=== PATIENT | male | born 1965 | race African-American/Black ===

== ENCOUNTER 2017-06-01 15:18 | Inpatient (IN) | payer OTHER ==
[~2017-06-01] VITALS: Ht 167.6 cm; Wt 73.0 kg
[2017-06-01] VITALS (7 sets, daily range): BP systolic 173–209; BP diastolic 73–142; PULSE 49–87; RESP 14–18; TEMP 96.8–98.5; O2SAT 98–100
[~2017-06-01 15:18] MED LIST: HYDR50TA5 PO; LISI-357 PO; NORV10TA PO; ONETAB17 PO
--- NOTE | 2017-06-01 16:26 | PD ---
HPI Chief Complaint: Medical Clearance Time Seen by Provider: 16:26 Travel History International Travel<30 days: No Contact w/Intl Traveler<30days: No Traveled to known affect area: No History of Present Illness HPI 52-year-old -Irish male with known hypertension, presents to emergency department with headache which he states he typically gets when his blood pressure is too high. Patient does have clonidine which he took 1 hour after taking a nap waking up with a headache on the left side of his head. He was unsure what his blood pressure was at that time, but since he took the clonidine his pressure seems to have improved by his symptoms which are improved. His headache is now about a 3 out of 10. He denies any visual changes at this time. Patient states he was on lisinopril and amlodipine in the past but not for many months. He now just takes clonidine twice daily, but states he does sometimes skip the evening dose. Patient states he recently got new insurance and has not been seen by a primary care physician in several years. Patient denies chest pain or other symptoms. Blood pressure in triage is noted to be 209/130. The patient has no known drug allergies. PFSH Past Medical History Cardiovascular Problems: Yes High Cholesterol: Yes Diminished Hearing: No Hypertension: Yes Social History Alcohol Use: No Tobacco Use: Yes (2 CIGARS/DAY) Substance Use: Yes (MARIJUANA) Allergies-Medications (Allergen,Severity, Reaction): Coded Allergies: No Known Allergies (Verified , 06/08/14) Reported Meds & Prescriptions Reported Meds & Active Scripts Active Review of Systems Except as stated in HPI: all other systems reviewed are Neg General / Constitutional: No: Fever Eyes: Positive: Blurred Vision, No: Visual changes HENT: Positive: Headaches (Earlier. Earlier.) Cardiovascular: No: Chest Pain or Discomfort Respiratory: No: Shortness of Breath Gastrointestinal: No: Abdominal Pain Genitourinary: No: Dysuria Musculoskeletal: No: Pain Skin: No Rash Neurologic: No: Weakness Psychiatric: No: Depression Endocrine: No: Polydipsia Hematologic/Lymphatic: No: Easy Bruising Physical Exam Narrative GENERAL: Patient appears in no acute distress SKIN: Warm and dry. Normal color. Normal turgor. Patient is noted to have a mole to the right anterior jaw similar to a skin tag, as well as what appears to be noninfected ingrown hair/swollen area to the left lateral jaw. HEAD: Atraumatic. Normocephalic. EYES: Pupils equal and round. No scleral icterus. No injection or drainage. ENT: No nasal bleeding or discharge. Mucous membranes pink and moist. Pharynx is clear. Airway is patent. NECK: Trachea midline. Supple and nontender. CARDIOVASCULAR: Regular rate and rhythm. No murmurs gallops or rubs RESPIRATORY: No accessory muscle use. Clear to auscultation. Breath sounds equal bilaterally. GASTROINTESTINAL: Abdomen soft, non-tender, nondistended. Hepatic and splenic margins not palpable. MUSCULOSKELETAL: Extremities without clubbing, cyanosis, or edema. No obvious deformities. NEUROLOGICAL: Awake and alert. No obvious cranial nerve deficits. Motor grossly within normal limits. Five out of 5 muscle strength in the arms and legs. Normal speech. PSYCHIATRIC: Appropriate mood and affect; insight and judgment normal. Data Data Last Documented VS Vital Signs Date Time Temp Pulse Resp B/P (MAP) Pulse Ox O2 Delivery O2 Flow Rate FiO2 06/01/17 17:17 49 17 185/115 (138) 98 Room Air 06/01/17 15:23 98.5 Orders Orders Electrocardiogram (06/01/17 ) Basic Metabolic Panel (Bmp) (06/01/17 16:33) Ckmb (Isoenzyme) Profile (06/01/17 16:33) Complete Blood Count With Diff (06/01/17 16:33) Prothrombin Time / Inr (Pt) (06/01/17 16:33) Act Partial Throm Time (Ptt) (06/01/17 16:33) Troponin I (06/01/17 16:33) Chest, Single Ap (06/01/17 16:33) Ecg Monitoring (06/01/17 16:33) Iv Access Insert/Monitor (06/01/17 16:33) Oximetry (06/01/17 16:33) Sodium Chloride 0.9% Flush (Ns Flush) (06/01/17 16:45) Metoprolol Tartrate Inj (Lopressor Inj) (06/01/17 16:45) CKMB (06/01/17 16:30) CKMB% (06/01/17 16:30) Hydralazine Inj (Apresoline Inj) (06/01/17 17:45) Aspirin Chew (Aspirin Chew) (06/01/17 17:45) Admit Order (Ed Use Only) (06/01/17 18:01) Labs Laboratory Tests Test 06/01/17 16:30 White Blood Count 4.5 TH/MM3 Red Blood Count 5.69 MIL/MM3 Hemoglobin 14.2 GM/DL Hematocrit 44.6 % Mean Corpuscular Volume 78.4 FL Mean Corpuscular Hemoglobin 24.9 PG Mean Corpuscular Hemoglobin Concent 31.7 % Red Cell Distribution Width 14.2 % Platelet Count 136 TH/MM3 Mean Platelet Volume 9.8 FL Neutrophils (%) (Auto) 47.4 % Lymphocytes (%) (Auto) 37.1 % Monocytes (%) (Auto) 11.7 % Eosinophils (%) (Auto) 3.3 % Basophils (%) (Auto) 0.5 % Neutrophils # (Auto) 2.1 TH/MM3 Lymphocytes # (Auto) 1.7 TH/MM3 Monocytes # (Auto) 0.5 TH/MM3 Eosinophils # (Auto) 0.1 TH/MM3 Basophils # (Auto) 0.0 TH/MM3 CBC Comment AUTO DIFF Differential Comment AUTO DIFF CONFIRMED Platelet Estimate LOW Platelet Morphology Comment NORMAL Prothrombin Time 10.6 SEC Prothromb Time International Ratio 1.0 RATIO Activated Partial Thromboplast Time 27.7 SEC Blood Urea Nitrogen 18 MG/DL Creatinine 1.58 MG/DL Random Glucose 88 MG/DL Calcium Level 8.6 MG/DL Sodium Level 140 MEQ/L Potassium Level 4.1 MEQ/L Chloride Level 108 MEQ/L Carbon Dioxide Level 25.6 MEQ/L Anion Gap 6 MEQ/L Estimat Glomerular Filtration Rate 56 ML/MIN Total Creatine Kinase 345 U/L Creatine Kinase MB 5.5 NG/ML Creatine Kinase MB % 1.6 % Troponin I 0.23 NG/ML [facility] Medical Decision Making Medical Screen Exam Complete: Yes Emergency Medical Condition: Yes Medical Record Reviewed: Yes Differential Diagnosis Headache. Hypertension. Hypertensive crisis. Ingrown hair. Narrative Course Patient is medically stable at time of exam. I explained to the patient that we do not drain or remove ingrown hairs unless they are infected, especially if they are on the face here in the emergency department. EKG is performed as well as labs including CBC, and CMP. Cardiac labs are ordered as well. IV access is obtained the patient was given [address] of the head is not felt warranted based on my current history and physical. Chest x-ray showed: CONCLUSION: 1. Prominent left cardiac contour which may reflect ventricular hypertrophy amongst other etiologies. Clinical correlation is recommended. Patient may benefit from echocardiography as clinically appropriate. EKG shows sinus bradycardia with left anterior fascicular block which is unchanged from 2014. This reviewed with Dr. Meeks. Labs show CBC unremarkable. Coagulation studies are unremarkable Chemistries significant for chloride of 108, creatinine is 1.58 despite BUN of 18. GFR is 56. Total creatinine kinase is 345, CK-MB is 5.5, with a CK-MB index of 1.6%. Troponin is elevated 0.23 These findings were discussed with Dr. Meeks who recommended giving the patient aspirin 324 mg p.o. as well as 10 mg hydralazine IV for his pressure. It is notable that the patient never complained of chest pain, chest pressure or congestion. Call is placed to the hospitalist for admission for this patient elevated troponin in the setting of hypertensive urgency. Diagnosis Primary Impression: Elevated troponin I measurement Additional Impression: Hypertensive urgency Admitting Information Admitting Physician Requests: Observation Condition: Stable Eulalio Hamm Jun 01, 2017 16:26
[2017-06-01] MEDS ORDERED: SODIUM CHLORIDE 0.9% FLUSH 10 ML FLUSH IVF PRN (16:45)
[2017-06-01] MEDS ORDERED: METOPROLOL TARTRATE 5 MG/5 ML VIAL IV PUSH ONE (16:45)
--- NOTE | 2017-06-01 17:03 | RADRPT ---
EXAM DATE/TIME: 06/01/2017 16:37 [facility] COMPARISON: No previous studies available for comparison. INDICATIONS : Headache, high blood pressure, short of breath today MEDICAL HISTORY : Hypertension. SURGICAL HISTORY : None. ENCOUNTER: Initial ACUITY: 1 day PAIN SCORE: 0/10 LOCATION: Bilateral chest FINDINGS: A single view of the chest demonstrates the lungs to be symmetrically aerated without evidence of mas s, infiltrate or effusion. Prominent left cardiac heart border. Osseous structures are intact. CONCLUSION: 1. Prominent left cardiac contour which may reflect ventricular hypertrophy amongst other etiologies. Clinical correlation is recommended. Patient may benefit from echocardiography as clinically appropr iate. Uri Bond MD on June 01, 2017 at 16:59 Board Certified Radiologist. This report was verified electronically.
[2017-06-01 17:09] LABS: AUTOMATED NEUTROPHIL # 2.1 TH/MM3 (1.8-7.7); BASOPHIL % 0.5 % (0.0-2.0); EOSINOPHIL # 0.1 TH/MM3 (0-0.4); EOSINOPHIL % 3.3 % (0.0-4.0); HEMATOCRIT 44.6 % (39.0-51.0); HEMOGLOBIN 14.2 GM/DL (13.0-17.0); LYMPH % 37.1 % (9.0-44.0); LYMPHOCYTE # 1.7 TH/MM3 (1.0-4.8); MEAN CELL VOLUME 78.4 FL (80.0-100.0); MEAN CORPUSCULAR HEMOGLOBIN 24.9 PG (27.0-34.0); MEAN CORPUSCULAR HGB CONC 31.7 % (32.0-36.0); MEAN PLATELET VOLUME 9.8 FL (7.0-11.0); MONO % 11.7 % (0.0-8.0); MONOCYTE # 0.5 TH/MM3 (0-0.9); NEUT % 47.4 % (16.0-70.0); PLATELET COUNT 136 TH/MM3 (150-450); RED BLOOD COUNT 5.69 MIL/MM3 (4.50-5.90); RED CELL DISTRIBUTION WIDTH 14.2 % (11.6-17.2); WHITE BLOOD COUNT 4.5 TH/MM3 (4.0-11.0)
[2017-06-01 17:17] LABS: BICARBONATE 25.6 MEQ/L (21.0-32.0); CALCIUM 8.6 MG/DL (8.5-10.1); CREATININE 1.58 MG/DL (0.60-1.30)
[2017-06-01 17:21] LABS: TROPONIN I 0.23 NG/ML (0.02-0.05)
[2017-06-01 17:22] LABS: PROTHROMBIN TIME - PATIENT 10.6 SEC (9.8-11.6)
[2017-06-01] MEDS ORDERED: hydrALAZINE HCL 20 MG/ML VIAL IV PUSH ONE (17:45)
[2017-06-01] MEDS ORDERED: ASPIRIN 81 MG CHEW TAB CHEW ONE (17:45)
[2017-06-01] MEDS ORDERED: ONDANSETRON HCL 4 MG/2 ML VIAL IVP PRN (18:15)
[2017-06-01] MEDS ORDERED: NALOXONE HCL 0.4 MG/ML AMP IV PUSH PRN (18:15)
[2017-06-01] MEDS ORDERED: cloNIDine HCL 0.1 MG TAB PO PRN (18:15)
[2017-06-01] MEDS ORDERED: MAGNESIUM HYDROXIDE SUSP 30 ML CUP PO PRN (18:15)
[2017-06-01] MEDS ORDERED: CLON.1 PO (18:19)
[2017-06-01] MEDS ORDERED: NICOTINE 14 MG/24 HR PATCH T-DERMAL ONE (19:00)
[2017-06-01] MEDS ORDERED: HYDROCHLOROTHIAZIDE 25 MG TAB PO ONE (19:00)
--- NOTE | 2017-06-01 19:02 | HHI.HP ---
[facility] No Primary Care Physician Admission Diagnosis HTN/Elevated Troponin/Increased Creatinine Diagnoses: (1) Hypertensive urgency (2) Elevated troponin I measurement Travel History International Travel<30 Days: No Contact w/Intl Traveler <30 Da: No Traveled to Known Affected Are: No History of Present Illness Mr. Hernandez is a 52-year-old male. He came in secondary to suspected hypertension with headache and left eye pain. He also says that he came in to have a left growth on his left cheek evaluated. The growth on his left cheek is a sebaceous cyst and outpatient management is recommended. However when his blood pressures were checked he is found to be in hypertensive urgency. He says he has had this problem in the past. He does not monitor his blood pressures at home very closely and at baseline he has been on clonidine. He is also found to have an elevated troponin and an elevated creatinine. Given the degree of hypertensive urgency combined with the acute kidney injury which may be related to the hypertensive urgency the troponin elevation does not be outside of the range of what would be expected. She is not having any chest pain. She has no history of known coronary artery disease. However he is 52- year-old and is a smoker. Underlying coronary artery disease could be present. No other complaints tonight. Patient is agreeable to stay for treatment. Review of Systems Constitutional: DENIES: Fatigue, Weight gain, Dizziness Eyes: DENIES: Blurred vision, Diplopia, Eye inflammation Ears, nose, mouth, throat: DENIES: Tinnitus, Hearing loss, Vertigo, Nasal discharge Respiratory: DENIES: Apneas, Cough, Wheezing, Shortness of breath Cardiovascular: DENIES: Chest pain, Palpitations, Syncope Gastrointestinal: DENIES: Abdominal pain, Black stools, Bloody stools, Constipation Musculoskeletal: DENIES: Joint pain, Muscle aches, Stiffness Integumentary: DENIES: Abnormal pigmentation, Nail changes, Pruritus, Rash Hematologic/lymphatic: DENIES: Bruising, Lymphadenopathy Immunologic/allergic: DENIES: Eczema, Urticaria Neurologic: COMPLAINS OF: Headache, DENIES: Abnormal gait, Paresthesias Psychiatric: DENIES: Anxiety, Confusion, Hallucinations Past Family Social History Past Medical History Hypertension Past Surgical History No history of surgeries Reported Medications Reported Meds & Active Scripts Active Reported Catapres (Clonidine) 0.1 Mg Tab 0.1 Mg PO BID Allergies: Coded Allergies: No Known Allergies (Verified Allergy, Unknown, 06/01/17) Family History Hypertension in patient's mother Social History Patient smokes 4-6 cigars a day No alcohol abuse No illicit drug abuse Physical Exam Vital Signs Vital Signs Date Time Temp Pulse Resp B/P (MAP) Pulse Ox O2 Delivery O2 Flow Rate FiO2 06/01/17 18:20 58 17 175/108 (130) 100 Room Air 06/01/17 17:17 49 17 185/115 (138) 98 Room Air 06/01/17 16:51 76 16 203/142 (162) 100 Room Air 06/01/17 16:41 98 Room Air 06/01/17 15:23 98.5 68 14 209/130 (156) 98 Physical Exam GENERAL: NAD, A&Ox3 HEAD: Normocephalic. NECK: Supple, trachea midline. No lymphadenopathy. EYES: No scleral icterus. No injection or drainage. CARDIOVASCULAR: Regular rate and rhythm without murmurs, gallops, or rubs. RESPIRATORY: Breath sounds equal bilaterally. No accessory muscle use. GASTROINTESTINAL: Abdomen soft, non-tender, nondistended. MUSCULOSKELETAL: No cyanosis, or edema. SKIN: Warm and dry. 1.5 cm sebaceous cyst at left cheek without erythema. NEURO: No focal neurological deficitis. Laboratory Laboratory Tests Test 06/01/17 16:30 White Blood Count 4.5 Red Blood Count 5.69 Hemoglobin 14.2 Hematocrit 44.6 Mean Corpuscular Volume 78.4 Mean Corpuscular Hemoglobin 24.9 Mean Corpuscular Hemoglobin Concent 31.7 Red Cell Distribution Width 14.2 Platelet Count 136 Mean Platelet Volume 9.8 Neutrophils (%) (Auto) 47.4 Lymphocytes (%) (Auto) 37.1 Monocytes (%) (Auto) 11.7 Eosinophils (%) (Auto) 3.3 Basophils (%) (Auto) 0.5 Neutrophils # (Auto) 2.1 Lymphocytes # (Auto) 1.7 Monocytes # (Auto) 0.5 Eosinophils # (Auto) 0.1 Basophils # (Auto) 0.0 CBC Comment AUTO DIFF Differential Comment AUTO DIFF CONFIRMED Platelet Estimate LOW Platelet Morphology Comment NORMAL Prothrombin Time 10.6 Prothromb Time International Ratio 1.0 Activated Partial Thromboplast Time 27.7 Blood Urea Nitrogen 18 Creatinine 1.58 Random Glucose 88 Calcium Level 8.6 Sodium Level 140 Potassium Level 4.1 Chloride Level 108 Carbon Dioxide Level 25.6 Anion Gap 6 Estimat Glomerular Filtration Rate 56 Total Creatine Kinase 345 Creatine Kinase MB 5.5 Creatine Kinase MB % 1.6 Troponin I 0.23 Result Diagram: 06/01/17 1630 06/01/17 1630 Imaging Last Impressions Chest X-Ray 06/01/17 1633 Signed Impressions: Service Date/Time: Thursday, June 01, 2017 16:37 - CONCLUSION: 1. Prominent left cardiac contour which may reflect ventricular hypertrophy amongst other etiologies. Clinical correlation is recommended. Patient may benefit from echocardiography as clinically appropriate. MD Margarette Louise VTE Risk Assessment Margarette VTE Risk Assessment: No/Low Risk (score <= 1) Caprini Risk Assessment Model Point Value = 1 Point Value = 2 Point Value = 3 Point Value = 5 Age 41-60 Minor surgery BMI > 25 kg/m2 Swollen legs Varicose veins or History of unexplained or recurrent spontaneous Oral contraceptives or hormone replacement Sepsis (< 1 month) Serious lung disease, including pneumonia (< 1 month) Abnormal pulmonary function Acute myocardial infarction Congestive heart failure (< 1 month) History of inflammatory bowel disease Medical patient at bed rest Age 61-74 Arthroscopic surgery Major open surgery (> 45 min) Laparoscopic surgery (> 45 min) Malignancy Confined to bed (> 72 hours) Immobilizing plaster cast Central venous access Age >= 75 History of VTE Family history of VTE Factor V Leiden Prothrombin [id number] Lupus anticoagulant Anticardiolipin antibodies Elevated serum homocysteine Heparin-induced thrombocytopenia Other congenital or acquired thrombophilia Stroke (< 1 month) Elective arthroplasty Hip, pelvis, or leg fracture Acute spinal cord injury (< 1 month) Prophylaxis Regimen Total Risk Factor Score Risk Level Prophylaxis Regimen 0-1 Low Early ambulation 2 Moderate Order ONE of the following: *Sequential Compression Device (SCD) *Heparin 5000 units SQ BID 3-4 Higher Order ONE of the following medications: *Heparin 5000 units SQ TID *Enoxaparin/Lovenox 40 mg SQ daily (WT < 150 kg, CrCl > 30 mL/min) *Enoxaparin/Lovenox 30 mg SQ daily (WT < 150 kg, CrCl > 10-29 mL/min) *Enoxaparin/Lovenox 30 mg SQ BID (WT < 150 kg, CrCl > 30 mL/min) AND/OR *Sequential Compression Device (SCD) 5 or more Highest Order ONE of the following medications: *Heparin 5000 units SQ TID (Preferred with Epidurals) *Enoxaparin/Lovenox 40 mg SQ daily (WT < 150 kg, CrCl > 30 mL/min) *Enoxaparin/Lovenox 30 mg SQ daily (WT < 150 kg, CrCl > 10-29 mL/min) *Enoxaparin/Lovenox 30 mg SQ BID (WT < 150 kg, CrCl > 30 mL/min) AND *Sequential Compression Device (SCD) Assessment and Plan Problem List: (1) Elevated troponin I measurement ICD Code: R74.8 - Abnormal levels of other serum enzymes Status: Acute (2) Hypertensive urgency ICD Code: I10 - Hypertensive urgency Status: Acute Assessment and Plan 52-year-old male admitted secondary to hypertensive urgency Hypertensive urgency Clonidine as needed Vasotec as needed Begin amlodipine as a baseline treatment Begin hydrochlorothiazide as a baseline treatment Consider stopping clonidine as baseline treatment and consider a switch to an as -needed basis at discharge Troponin elevation May be related to hypertensive urgency and acute kidney injury Follow serial EKGs Follow serial troponins and CKs Consider further cardiac workup if troponin has an upward trend If there is a downward trend no need for further workup at this time Acute kidney injury Could be related to hypertensive urgency if this has been persistent for a while No outpatient blood pressure checks to correlate Control blood pressures and monitor renal function Avoid nephrotoxins DVT prophylaxis SCDs Physician Certification 2 Midnight Certification Type: Admission for Inpatient Services Order for Inpatient Services The services are ordered in accordance with Medicare regulations or non- Medicare payer requirements, as applicable. In the case of services not specified as inpatient-only, they are appropriately provided as inpatient services in accordance with the 2-midnight benchmark. Estimated LOS (days): 2 days is the estimated time the patient will need to remain in the hospital, assuming treatment plan goals are met and no additional complications. Post-Hospital Plan: Home Kem Carson MD Jun 01, 2017 19:02
[2017-06-01] MEDS: SODIUM CHLORIDE 0.9% FLUSH 10 ML FLUSH IV FLUSH SCH (21:38)
[2017-06-02] VITALS (11 sets, daily range): BP systolic 137–182; BP diastolic 74–111; PULSE 45–60; RESP 18–20; TEMP 96–98.1; O2SAT 98–100
[2017-06-02 03:27] LABS: TROPONIN I 0.23 NG/ML (0.02-0.05)
[2017-06-02] MEDS: SODIUM CHLORIDE 0.9% FLUSH 10 ML FLUSH IV FLUSH PRN (04:08)
[2017-06-02] MEDS: ENALAPRILAT 1.25 MG/ML VIAL IV PUSH PRN ×2 (04:08→17:03)
[2017-06-02 06:59] LABS: AUTOMATED NEUTROPHIL # 2.2 TH/MM3 (1.8-7.7); BASOPHIL % 0.7 % (0.0-2.0); EOSINOPHIL # 0.1 TH/MM3 (0-0.4); EOSINOPHIL % 3.1 % (0.0-4.0); HEMATOCRIT 45.7 % (39.0-51.0); HEMOGLOBIN 14.6 GM/DL (13.0-17.0); LYMPH % 38.6 % (9.0-44.0); LYMPHOCYTE # 1.8 TH/MM3 (1.0-4.8); MEAN CELL VOLUME 77.9 FL (80.0-100.0); MEAN PLATELET VOLUME 10.6 FL (7.0-11.0); MONO % 11.2 % (0.0-8.0); MONOCYTE # 0.5 TH/MM3 (0-0.9); NEUT % 46.4 % (16.0-70.0); PLATELET COUNT 150 TH/MM3 (150-450); RED BLOOD COUNT 5.87 MIL/MM3 (4.50-5.90); RED CELL DISTRIBUTION WIDTH 13.8 % (11.6-17.2); WHITE BLOOD COUNT 4.8 TH/MM3 (4.0-11.0)
[2017-06-02] MEDS ORDERED: cloNIDine HCL 0.1 MG TAB PO SCH (07:00)
[2017-06-02 07:17] LABS: ALBUMIN 3.4 GM/DL (3.4-5.0); ALT (GPT) 13 U/L (12-78); AST (GOT) 19 U/L (15-37); BLOOD UREA NITROGEN 16 MG/DL (7-18); CALCIUM 8.6 MG/DL (8.5-10.1); CHLORIDE 106 MEQ/L (98-107); CREATININE 1.37 MG/DL (0.60-1.30); GLOMERULAR FILTRATION RATE 66 ML/MIN (>89); GLUCOSE,RANDOM 75 MG/DL (74-106); SODIUM (NA) 140 MEQ/L (136-145)
[2017-06-02 07:20] LABS: ALKALINE PHOSPHATASE 57 U/L (45-117); TOTAL BILIRUBIN ADULT 0.4 MG/DL (0.2-1.0); TOTAL PROTEIN 7.1 GM/DL (6.4-8.2)
[2017-06-02 07:22] LABS: TROPONIN I 0.25 NG/ML (0.02-0.05)
[2017-06-02] MEDS ORDERED: REMOVE OLD PATCH T-DERMAL SCH (09:00)
[2017-06-02] MEDS: HYDROCHLOROTHIAZIDE 25 MG TAB PO SCH (09:00)
[2017-06-02] MEDS ORDERED: LISINOPRIL 10 MG TAB PO SCH (09:30)
--- NOTE | 2017-06-02 09:54 | HHI.PR ---
Subjective Remarks The pt was resting comfortably. He said his headache went away. He has not been ambulating too much. He said he had a stress test years ago. He said he had a heart attack years ago. Discussed with nursing. Objective Vitals Vital Signs Date Time Temp Pulse Resp B/P (MAP) Pulse Ox O2 Delivery O2 Flow Rate FiO2 06/02/17 08:00 97.5 51 18 156/91 (112) 100 06/02/17 06:49 45 137/74 (95) 06/02/17 05:56 55 171/104 (126) 06/02/17 05:53 59 182/111 (134) 06/02/17 04:00 96.0 55 18 144/98 (113) 100 06/02/17 00:43 58 06/01/17 23:20 96.8 60 18 173/95 (121) 98 06/01/17 21:38 87 18 187/73 (111) 100 06/01/17 18:20 58 17 175/108 (130) 100 Room Air 06/01/17 17:17 49 17 185/115 (138) 98 Room Air 06/01/17 16:51 76 16 203/142 (162) 100 Room Air 06/01/17 16:41 98 Room Air 06/01/17 15:23 98.5 68 14 209/130 (156) 98 I/O 06/01/17 06/01/17 06/01/17 06/02/17 06/02/17 06/02/17 07:00 15:00 23:00 07:00 15:00 23:00 Output Total 300 ml Balance -300 ml Output Urine Total 300 ml Result Diagram: 06/02/17 0545 06/02/17 0545 Imaging Last Impressions Chest X-Ray 06/01/17 1633 Signed Impressions: Service Date/Time: Thursday, June 01, 2017 16:37 - CONCLUSION: 1. Prominent left cardiac contour which may reflect ventricular hypertrophy amongst other etiologies. Clinical correlation is recommended. Patient may benefit from echocardiography as clinically appropriate. Uri Bond MD Objective Remarks GENERAL: NAD, A&Ox3. HEAD: Normocephalic. NECK: Supple, trachea midline. No lymphadenopathy. EYES: No scleral icterus. No injection or drainage. CARDIOVASCULAR: Regular rate and rhythm with a grade 2 systolic murmur. RESPIRATORY: Breath sounds equal bilaterally. No accessory muscle use. GASTROINTESTINAL: Abdomen soft, non-tender, nondistended. MUSCULOSKELETAL: No cyanosis, or edema. SKIN: Warm and dry. NEURO: No focal neurological deficits. PSYCH: Mood and affect appropriate. Medications and IVs Current Medications Medications (Trade) Dose Ordered Sig/Deysi Route Start Time Stop Time Status Last Admin (NS Flush) 2 ml UNSCH PRN IV FLUSH 06/01/17 18:15 06/02/17 04:08 (NS Flush) 2 ml BID IV FLUSH 06/01/17 21:00 06/01/17 21:38 (Zofran Inj) 4 mg Q6H PRN IVP 06/01/17 18:15 (Narcan Inj) 0.4 mg UNSCH PRN IV PUSH 06/01/17 18:15 (Milk Of Magnesia Liq) 30 ml Q12H PRN PO 06/01/17 18:15 (Vasotec Inj) 1.25 mg Q6H PRN IV PUSH 06/01/17 18:15 06/02/17 04:08 (Norvasc) 10 mg DAILY PO 06/02/17 09:00 (Habitrol 14 Mg Patch.24 Hr) 1 patch DAILY T-DERMAL 06/02/17 09:00 Miscellaneous Information 1 DAILY T-DERMAL 06/02/17 09:00 (Hydrodiuril) 25 mg DAILY PO 06/02/17 09:00 (Prinivil) 10 mg DAILY PO 06/02/17 09:30 UNV A/P Problem List: (1) Elevated troponin I measurement ICD Code: R74.8 - Abnormal levels of other serum enzymes Status: Acute (2) Hypertensive urgency ICD Code: I10 - Hypertensive urgency Status: Acute Assessment and Plan Hypertensive urgency Improved. - Begin amlodipine and lisinopril as baseline treatment. - Vasotec as needed. - echo ordered. Troponin elevation May be related to hypertensive urgency and acute kidney injury. - Follow serial troponins. - cardiology consult pending. Acute kidney injury May be chronic. - Control blood pressures and monitor renal function. - Avoid nephrotoxins. - d/c HCTZ. Bradycardia HR has been in the 40s and 50s. - d/c clonidine. - telemetry. DVT prophylaxis: Desmond Vega DO Jun 02, 2017 09:54
[2017-06-02] MEDS: SODIUM CHLORIDE 0.9% FLUSH 10 ML FLUSH IV FLUSH SCH ×2 (10:21→20:49)
[2017-06-02] MEDS: NICOTINE 14 MG/24 HR PATCH T-DERMAL SCH (10:21)
--- NOTE | 2017-06-02 17:17 | MB ---
cc: SCOUT TODD DATE OF CONSULTATION 06/02/17 REASON FOR CONSULTATION Abnormal troponin levels. HISTORY OF PRESENT ILLNESS The patient is a 52-year-old -[place] male with a history of hypertension and hyperlipidemia who was in his usual state of health up until yesterday evening when he developed a headache, centered mostly above his left eye. He also just "did not feel well". When he came to the emergency room, he was markedly hypertensive with a blood pressure of 209/130. Since coming into the hospital, his headache has resolved and his blood pressures have decreased. Troponin levels were checked and found to be slightly abnormal. The patient denies any recent chest pains, although he states at times while working out he experiences a mild left-sided chest discomfort described as "pressure" never lasting more than five minutes with inconsistent relationship to exertion. He denies shortness of breath, pedal edema, paroxysmal nocturnal dyspnea, palpitations, lightheadedness, syncope, near-syncope. The patient states that he has been noncompliant with his clonidine recently due to excessive emotional stress from family issues. PAST MEDICAL HISTORY 1. Hypertension 2. Hyperlipidemia. MEDICATIONS Cardiac at home - Catapres 0.1 mg b.i.d. ALLERGIES NO KNOWN DRUG ALLERGIES. FAMILY HISTORY There is no significant family history of early myocardial infarction. He believes his mother has hypertension. SOCIAL HISTORY The patient rarely smokes a cigarette. He is trying to quit smoking cigars. There is no history of alcohol or drug abuse. REVIEW OF SYSTEMS As in the history of present illness otherwise negative or noncontributory. He also denies visual changes, unilateral weakness or numbness, abdominal pain, melena, dyspepsia, bright red blood per rectum or flu symptoms. PHYSICAL EXAMINATION VITAL SIGNS: Blood pressure 144/93 with a pulse of 52, respirations 18. GENERAL: He is a well-developed, well-nourished -[place]an male in no acute distress HEENT: Jugular venous pressure is normal. Carotid pulses are 2+ bilaterally and without bruits. CHEST: Clear lung campos. CARDIAC: He has a regular rhythm and rate with a grade 2/6 mid to late systolic murmur heard at the left lower sternal border and apex. No gallop is audible. ABDOMEN: He has a soft, nontender abdomen. Bowel sounds are present. There is no definite hepatosplenomegaly. EXTREMITIES: No clubbing, cyanosis or edema. Peripheral pulses are normal throughout. CARDIOLOGY STUDIES EKG from 06/01/2017 at 04:50 p.m. shows sinus bradycardia, voltage criteria for left ventricular hypertrophy, lateral T-wave abnormality consider ischemia, no change from 2014. LABORATORY DATA WBC 4.8, hemoglobin 14.6, platelets 150, potassium 3.8, BUN 16, creatinine 1.37, CK 345 with 1.6% MB fraction. Troponin 0.25. IMAGING STUDIES Chest x-ray shows no acute disease. IMPRESSION Hypertensive urgency, slightly abnormal troponin levels in this 52-year-old -[place] male with a history of hypertension and hyperlipidemia. While I doubt the slight elevation in troponin levels is due to acute coronary syndrome and more likely due to his hypertensive urgency, he does relate a several-month history of intermittent chest discomfort occasionally with exercise activities. His EKG does show lateral T-wave changes, although these are chronic and unchanged from at least four years ago. CK levels are negative for myocardial infarction and he denies any recent chest pains. Blood pressure control has improved since admission. He has been noncompliant with his clonidine at home recently. The patient also has a murmur on exam suggestive of mitral regurgitation, possibly mitral valve prolapse. RECOMMENDATIONS 1. Continue to optimize blood pressure control; agree with using lisinopril and amlodipine. 2. Check a Lexiscan nuclear stress test in the morning. If the nuclear stress test is negative for ischemia, he is cleared for discharge from a cardiac standpoint. 3. Await his 2-D echo to assess his systolic murmur on exam. 4. We will follow up as needed for any significant abnormalities seen on his cardiac testing. MD KVEIN Medel/ /3:51 PM /4:55 PM BEA
[2017-06-02] MEDS ORDERED: LISINOPRIL 10 MG TAB PO ONE (17:45)
[2017-06-03] VITALS (7 sets, daily range): BP systolic 146–172; BP diastolic 89–104; PULSE 56–76; RESP 16–18; TEMP 97.1–98.2; O2SAT 97–100
[2017-06-03] MEDS: ENALAPRILAT 1.25 MG/ML VIAL IV PUSH PRN ×2 (00:04→07:02)
[2017-06-03] MEDS ORDERED: hydrALAZINE HCL 20 MG/ML VIAL IV PUSH ONE (05:30)
[2017-06-03] MEDS: SODIUM CHLORIDE 0.9% FLUSH 10 ML FLUSH IV FLUSH PRN (05:41)
--- NOTE | 2017-06-03 08:10 | EKG ---
Date Performed: 06/01/2017 Time Performed: 16:50:36 PTAGE: 52 years EKG: SINUS BRADYCARDIA POSSIBLE LEFT ATRIAL ENLARGEMENT LEFT ANTERIOR FASCICULAR BLOCK LEFT VENT RICULAR HYPERTROPHY AND ST-T CHANGE, cannot exclude ischemia Compared to previous tracing T wave inve rsions are somewhat more prominent ABNORMAL ECG PREVIOUS TRACING : 01/24/14 DOCTOR: Vernon Leone Interpretating Date/Time 06/03/2017 08:09:21
--- NOTE | 2017-06-03 08:12 | EKG ---
Date Performed: 06/02/2017 Time Performed: 01:05:24 PTAGE: 52 years EKG: Sinus rhythm POSSIBLE LEFT ATRIAL ENLARGEMENT LEFT ANTERIOR FASCICULAR BLOCK LEFT VENTRICULAR HYPERTROPHY AND ST- T CHANGE, cannot exclude ischemia. Compared to previous tracing T wave changes are now more prominent ABNORMAL ECG PREVIOUS TRACING : 06/01/17 DOCTOR: Vernon Leone Interpretating Date/Time 06/03/2017 08:10:50
[2017-06-03] MEDS: HYDROCHLOROTHIAZIDE 25 MG TAB PO SCH (08:28)
[2017-06-03] MEDS: NICOTINE 14 MG/24 HR PATCH T-DERMAL SCH (08:28)
[2017-06-03] MEDS ORDERED: ACETAMINOPHEN 325 MG TAB PO PRN (08:30)
[2017-06-03] MEDS: SODIUM CHLORIDE 0.9% FLUSH 10 ML FLUSH IV FLUSH SCH (08:32)
[2017-06-03] MEDS ORDERED: LISINOPRIL 10 MG TAB PO SCH (09:00)
[2017-06-03 10:50] LABS: BICARBONATE 24.3 MEQ/L (21.0-32.0); CALCIUM 9.1 MG/DL (8.5-10.1); CREATININE 1.42 MG/DL (0.60-1.30)
[2017-06-03] MEDS ORDERED: REGADENOSON INJ 0.4 MG/5 ML SYR ONE (12:48)
--- NOTE | 2017-06-03 14:39 | RADRPT ---
EXAM DATE/TIME: 06/03/2017 12:16 [place] COMPARISON: No previous studies available for comparison. INDICATIONS : Chest pain. Angina. DOSE: 27.2 mCi Tc99m Myoview at stress. 8.2 mCi Tc99m Myoview at rest. 0.4 mg Lexiscan STRESS SYMPTOMS: Dyspnea and weird. EJECTION FRACTION: 26% MEDICAL HISTORY : Hypercholesterolemia. Hypertension. Smoker. SURGICAL HISTORY : None. ENCOUNTER: Initial ACUITY: 1 day PAIN SCALE: 3/10 LOCATION: chest TECHNIQUE: The patient underwent pharmacologic stress with infusion of prescribed dose. Continuous ECG tracing was monitored during stress. Gated SPECT imaging was performed after stress and conventional SPECT i maging was performed at rest. The examination was performed on a SPECT/CT scanner, both attenuation and non-corrected datasets were reviewed. FINDINGS: There is dilatation of the ventricular cavity without stress-induced ischemia. There is global hypok inesis the ejection fraction 26%. CONCLUSION: Negative for stress-induced ischemia. Global hyperkinesis with an ejection fraction 26%. RISK CATEGORY: High (>3% Annual Mortality Rate) Abel Cobos MD FACR on June 03, 2017 at 14:35 Board Certified Radiologist. This report was verified electronically.
--- NOTE | 2017-06-03 15:38 | ECHRPT ---
Indication: Essential (primary) hypertension CONCLUSIONS Normal left ventricular size. Moderate to severe concentric left ventricular hypertrophy. The left ventricular systolic function is low normal with an estimated ejection fraction of 50%. No rmal regional wall motion. There is trace tricuspid valve regurgitation. BP: 144 / 93 HR: 52 Rhythm: Other MEASUREMENTS (Male / Female) Normal Values Technical Quality:Good 2D ECHO LV Diastolic Diameter PLAX 5.8 cm 4.2 - 5.9 / 3.9 - 5.3 cm LV Systolic Diameter PLAX 4.7 cm IVS Diastolic Thickness 1.5 cm 0.6 - 1.0 / 0.6 - 0.9 cm LVPW Diastolic Thickness 1.5 cm 0.6 - 1.0 / 0.6 - 0.9 cm LV Relative Wall Thickness 0.5 LVOT Diameter 2.3 cm M-MODE Aortic Root Diameter MM 3.4 cm LA Systolic Diameter MM 2.8 cm LA Ao Ratio MM 0.8 AV Cusp Separation MM 1.9 cm DOPPLER AV Peak Velocity 176.0 cm/s AV Peak Gradient 12.4 mmHg LVOT Peak Velocity 104.0 cm/s LVOT Peak Gradient 4.3 mmHg AV Area Cont Eq pk 2.5 cm Mitral E Point Velocity 66.6 cm/s Mitral A Point Velocity 68.1 cm/s Mitral E to A Ratio 1.0 LV E' Lateral Velocity 5.3 cm/s Mitral E to LV E' Lateral Ratio 12.7 PV Peak Velocity 124.0 cm/s PV Peak Gradient 6.2 mmHg FINDINGS LEFT VENTRICLE Normal left ventricular size. Moderate to severe concentric left ventricular hypertrophy. The left ventricular systolic function is low normal with an estimated ejection fraction of 50%. No rmal regional wall motion. RIGHT VENTRICLE Normal right ventricular size and systolic function. LEFT ATRIUM The left atrial size is normal. RIGHT ATRIUM The right atrial size is normal. ATRIAL SEPTUM Normal atrial septal thickness without atrial level shunting by limited color doppler interrogation. AORTA The aortic root and proximal ascending aorta are normal in size on limited imaging. MITRAL VALVE Structurally normal mitral valve. No mitral valve stenosis or regurgitation. AORTIC VALVE Calcification of the left coronary cusp. TRICUSPID VALVE Structurally normal tricuspid valve. There is trace tricuspid valve regurgitation. PULMONARY VALVE The pulmonary valve is not well visualized. VESSELS The inferior vena cava is normal in size. PERICARDIUM No pericardial effusion. Tian Ayala MD (Electronically Signed) Final Date:03 June 2017 15:37
--- NOTE | 2017-06-03 15:41 | PD.CARD.PN ---
Subjective Subjective Remarks Denies CP, dyspnea, dizziness, palpitations, headache. Objective Medications Item Value Date Time Lisinopril 20 mg 06/03/17 2100 (Prinivil) BID/PO Amlodipine 10 mg 06/02/17 0900 Besylate DAILY/PO 06/03/17 08 (Norvasc) Hydrochlorothiazide 25 mg 06/02/17 0900 (Hydrodiuril) DAILY/PO 06/03/17 08 Current Medications Medications (Trade) Dose Ordered Sig/Deysi Route Start Time Stop Time Status Last Admin (NS Flush) 2 ml UNSCH PRN IV FLUSH 06/01/17 18:15 06/03/17 05:41 (NS Flush) 2 ml BID IV FLUSH 06/01/17 21:00 06/03/17 08:32 (Zofran Inj) 4 mg Q6H PRN IVP 06/01/17 18:15 (Narcan Inj) 0.4 mg UNSCH PRN IV PUSH 06/01/17 18:15 (Milk Of Magnscot Liq) 30 ml Q12H PRN PO 06/01/17 18:15 (Vasotec Inj) 1.25 mg Q6H PRN IV PUSH 06/01/17 18:15 06/03/17 07:02 (Norvasc) 10 mg DAILY PO 06/02/17 09:00 06/03/17 08:28 (Habitrol 14 Mg Patch.24 Hr) 1 patch DAILY T-DERMAL 06/02/17 09:00 06/03/17 08:28 Miscellaneous Information 1 DAILY T-DERMAL 06/02/17 09:00 06/02/17 09:00 (Hydrodiuril) 25 mg DAILY PO 06/02/17 09:00 06/03/17 08:28 (Tylenol) 650 mg Q4H PRN PO 06/03/17 08:30 06/03/17 08:30 (Prinivil) 20 mg BID PO 06/03/17 21:00 Vital Signs / I&O Vital Signs Date Time Temp Pulse Resp B/P (MAP) Pulse Ox O2 Delivery O2 Flow Rate FiO2 06/03/17 08:23 97.1 68 16 165/92 (116) 97 06/03/17 08:00 76 06/03/17 04:09 56 06/03/17 04:00 97.6 61 18 172/104 (126) 98 06/03/17 00:10 60 06/03/17 00:00 168/95 (119) 06/03/17 00:00 98.2 57 18 168/92 (117) 100 06/02/17 20:09 58 06/02/17 20:00 98.0 60 18 165/105 (125) 100 06/02/17 16:00 98.1 60 20 162/97 (118) 98 I/O 06/02/17 06/02/17 06/02/17 06/03/17 06/03/17 06/03/17 06:59 14:59 22:59 06:59 14:59 22:59 Intake Total 360 ml Output Total 300 ml 300 ml Balance -300 ml 60 ml Intake Oral 360 ml Output Urine Total 300 ml 300 ml Physical Exam GENERAL: Well developed, well nourished. No acute distress. HEENT: Jugular venous pressure is normal. CHEST: Lungs clear to auscultation bilaterally. Unlabored respiratory effort. CARDIAC: Regular rate and rhythm without S3, S4. I/ systolic murmur LLSB and apex. ABDOMEN: Soft, nontender, no hepatosplenomegaly. Bowel sounds present. EXTREMITIES: No clubbing, cyanosis, or edema. Laboratory Laboratory Tests Test 06/03/17 09:10 Blood Urea Nitrogen 16 MG/DL Creatinine 1.42 MG/DL Random Glucose 85 MG/DL Calcium Level 9.1 MG/DL Magnesium Level 2.0 MG/DL Sodium Level 136 MEQ/L Potassium Level 3.9 MEQ/L Chloride Level 103 MEQ/L Carbon Dioxide Level 24.3 MEQ/L Anion Gap 9 MEQ/L Estimat Glomerular Filtration Rate 63 ML/MIN Imaging Last 24 hours Impressions Myocardial Perfusion Scan Nuc Med 06/03/17 0000 Signed Impressions: Service Date/Time: Saturday, June 03, 2017 12:16 - CONCLUSION: Negative for stress-induced ischemia. Global hyperkinesis with an ejection fraction 26%%. RISK CATEGORY: High (>3%% Annual Mortality Rate) Abel Cobos MD FACR Assessment and Plan Problem List: (1) Elevated troponin ICD Codes: R74.8 - Abnormal levels of other serum enzymes Status: Acute Plan: Cardiac status stable. No angina symptoms. No ischemia or infarct seen on nuclear stress testing. EF low normal 50% on echo with moderate to severe LVH, consistent with longstanding hypertension. OK to discharge home from my standpoint, close f/u with his PCP for BP control. (2) Hypertensive urgency ICD Codes: I10 - Hypertensive urgency Status: Acute Plan: BP's better though still suboptimal. Moderate to marked LVH on echo. Rec close f/u with his PCP, resume his clonidine. I stressed to the patient the utter importance of compliance with medications and f/u. Code Status full code Discussed Condition With patient Tian Ayala MD Jun 03, 2017 15:41
[2017-06-03] MEDS ORDERED: CLON.1 PO (15:51)
[2017-06-03] MEDS ORDERED: HYDR25TA5 PO (15:51)
[2017-06-03] MEDS ORDERED: AMLO10 PO (15:51)
[2017-06-03] MEDS ORDERED: LISI-515 PO (15:51)
--- NOTE | 2017-06-03 15:51 | HHI.DCPOC ---
Discharge Care Plan Diagnosis: (1) Hypertensive urgency (2) Elevated troponin Goals to Promote Your Health * To prevent worsening of your condition and complications * To maintain your health at the optimal level Directions to Meet Your Goals Take your medications as prescribed Follow your dietary instruction Follow activity as directed Keep your appointments as scheduled Take your immunizations and boosters as scheduled If your symptoms worsen call your PCP, if no PCP go to Urgent Care Center or Emergency Room Smoking is Dangerous to Your Health. Avoid second hand smoke Call the 24-hour hour crisis hotline for domestic abuse at Peter Zayas MD Jun 03, 2017 15:51
--- NOTE | 2017-06-03 15:52 | HHI.DS ---
Discharge Summary Admission Date Jun 01, 2017 at 18:05 Discharge Date: Jun 03, 2017 Admitting Diagnosis HTN/Elevated Troponin/Increased Creatinine (1) Elevated troponin I measurement ICD Code: R74.8 - Abnormal levels of other serum enzymes Status: Acute (2) Hypertensive urgency ICD Code: I10 - Hypertensive urgency Status: Acute Procedures None Brief History - From Admission Mr. Hernandez is a 52-year-old male. He came in secondary to suspected hypertension with headache and left eye pain. He also says that he came in to have a left growth on his left cheek evaluated. The growth on his left cheek is a sebaceous cyst and outpatient management is recommended. However when his blood pressures were checked he is found to be in hypertensive urgency. He says he has had this problem in the past. He does not monitor his blood pressures at home very closely and at baseline he has been on clonidine. He is also found to have an elevated troponin and an elevated creatinine. Given the degree of hypertensive urgency combined with the acute kidney injury which may be related to the hypertensive urgency the troponin elevation does not be outside of the range of what would be expected. She is not having any chest pain. She has no history of known coronary artery disease. However he is 52- year-old and is a smoker. Underlying coronary artery disease could be present. No other complaints tonight. Patient is agreeable to stay for treatment. CBC/BMP: 06/02/17 0545 06/03/17 0910 Significant Findings Laboratory Tests Test 06/01/17 02:26 06/01/17 16:30 06/02/17 05:45 06/02/17 13:40 Troponin I 0.23 NG/ML (0.02-0.05) 0.23 NG/ML (0.02-0.05) 0.25 NG/ML (0.02-0.05) 0.20 NG/ML (0.02-0.05) Mean Corpuscular Volume 78.4 FL (80.0-100.0) 77.9 FL (80.0-100.0) Mean Corpuscular Hemoglobin 24.9 PG (27.0-34.0) 25.0 PG (27.0-34.0) Mean Corpuscular Hemoglobin Concent 31.7 % (32.0-36.0) Platelet Count 136 TH/MM3 (150-450) Monocytes (%) (Auto) 11.7 % (0.0-8.0) 11.2 % (0.0-8.0) Platelet Estimate LOW (NORMAL) Creatinine 1.58 MG/DL (0.60-1.30) 1.37 MG/DL (0.60-1.30) Chloride Level 108 MEQ/L (98-107) Estimat Glomerular Filtration Rate 56 ML/MIN (>89) 66 ML/MIN (>89) Total Creatine Kinase 345 U/L (39-308) Creatine Kinase MB 5.5 NG/ML (0.5-3.6) Test 06/03/17 09:10 Creatinine 1.42 MG/DL (0.60-1.30) Estimat Glomerular Filtration Rate 63 ML/MIN (>89) Imaging Last Impressions Myocardial Perfusion Scan Nuc Med 06/03/17 0000 Signed Impressions: Service Date/Time: Saturday, June 03, 2017 12:16 - CONCLUSION: Negative for stress-induced ischemia. Global hyperkinesis with an ejection fraction 26%%. RISK CATEGORY: High (>3%% Annual Mortality Rate) Abel Cobos MD FACR Chest X-Ray 06/01/17 1633 Signed Impressions: Service Date/Time: Thursday, June 01, 2017 16:37 - CONCLUSION: 1. Prominent left cardiac contour which may reflect ventricular hypertrophy amongst other etiologies. Clinical correlation is recommended. Patient may benefit from echocardiography as clinically appropriate. Uri Bond MD PE at Discharge GENERAL: NAD, A&Ox3. HEAD: Normocephalic. NECK: Supple, trachea midline. No lymphadenopathy. EYES: No scleral icterus. No injection or drainage. CARDIOVASCULAR: Regular rate and rhythm with a grade 2 systolic murmur. RESPIRATORY: Breath sounds equal bilaterally. No accessory muscle use. GASTROINTESTINAL: Abdomen soft, non-tender, nondistended. MUSCULOSKELETAL: No cyanosis, or edema. SKIN: Warm and dry. NEURO: No focal neurological deficits. PSYCH: Mood and affect appropriate. Pt update on day of discharge Patient reports he is feeling great. No chest pain or shortness of breath. Cleared by cardiology for discharge. We discussed discharge planning at length and the need to be compliant with antihypertensives medication and to follow-up outpatient with PCP. Hospital Course 52-year-old male admitted and treated for the following: Hypertensive urgency: Likely secondary to noncompliance. EF low normal 50% on echo with moderate to severe LVH, consistent with longstanding hypertension. Patient was followed by cardiology. Antihypertensives were optimized. He has to follow-up outpatient with PCP for further titration as needed. He is discharged on amlodipine, lisinopril, HCTZ, and clonidine. Troponin elevation: Concur with automation manager's assessment, elevated troponins likely secondary to hypertensive urgency. Nuclear stress test negative for acute ischemia. May be related to hypertensive urgency and acute kidney injury. Acute kidney injury Probable chronic kidney disease due to uncontrolled hypertension. Remains stable. Discussed with the patient needs to control high blood pressure. Outpatient follow-up is advised. Pt Condition on Discharge: Good Discharge Disposition: Discharge Home Discharge Time: <= 30 minutes Discharge Instructions DIET: Follow Instructions for: Heart Healthy Diet Activities you can perform: Regular-No Restrictions Follow up Referrals: PCP Follow-up - 1 Week New Medications: Amlodipine (Norvasc) 10 Mg Tab 10 MG PO DAILY, #30 TAB Hydrochlorothiazide (Hydrochlorothiazide) 25 Mg Tab 25 MG PO DAILY, #30 TAB Lisinopril (Lisinopril) 20 Mg Tab 20 MG PO DAILY, #30 TAB Continued Medications: Clonidine (Catapres) 0.1 Mg Tab 0.1 MG PO BID for Blood Pressure Management, #60 TAB 0 Refills (This prescription has been renewed) Peter Zayas MD Jun 03, 2017 15:52
[2017-06-03] MEDS ORDERED: cloNIDine HCL 0.2 MG TAB PO SCH (21:00)
[2017-06-03] MEDS ORDERED: LISINOPRIL 20 MG TAB PO SCH (21:00)
== END 2017-06-03 17:59 | disposition home or self-care (01) | DRG 305 ==
LOC: NEPD 15:18 → NEDA 18:03 → OBSVTOIN 18:05 → NEDA 21:39 → NEDH 22:05 → N04A 06-02 15:20
PROVIDERS: ADMIT Family Medicine; ATTEND Family Medicine
DX: I16.0 Hypertensive urgency (principal); N17.9 Acute kidney failure, unspecified; F17.290 Nicotine dependence, other tobacco product, uncomplicated; R74.8 Abnormal levels of other serum enzymes; Z91.14 Patient's other noncompliance with medication regimen; R00.1 Bradycardia, unspecified; L72.3 Sebaceous cyst; E78.5 Hyperlipidemia, unspecified
CPT/HCPCS: 71045; 78452; 80048; 80053; 82550; 82552; 83735; 84484; 85025; 85610; 85730; 93005; 93017; 93306; 96374; 96375; A9502; J0360; J2785

== ENCOUNTER 2017-09-14 20:31 | Emergency (ER) | payer OTHER ==
[~2017-09-14 20:31] MED LIST changes: +AMLO10 PO; +CLON.1 PO; +HYDR25TA5 PO; -HYDR50TA5 PO; -LISI-357 PO; +LISI-515 PO; -NORV10TA PO; -ONETAB17 PO
[2017-09-14 20:33] VITALS: BP 132/80; PULSE 69; RESP 18; TEMP 98.6; O2SAT 100
--- NOTE | 2017-09-14 20:54 | PD ---
HPI Chief Complaint: Lump, Cyst, Hernia Time Seen by Provider: 20:42 Travel History International Travel<30 days: No Contact w/Intl Traveler<30days: No Traveled to known affect area: No History of Present Illness HPI Patient is a 52-year-old male presenting to [facility] department for evaluation of a possible hernia. Patient states that he notices a lump superior to the umbilicus after he works all day. He states this comes and goes, he denies any abdominal pain, changes in his bowel habits, nausea, vomiting. He denies any redness or warmth to his skin. He also reports occasional pain in his right big toe that also comes and goes. He states that it is worse with 7 out of 10, sharp and shooting like. It is not worse at any particular time of the day. He states that his daughter told him he should come get checked out. Symptoms have been ongoing for several months if not longer. PFSH Past Medical History Cardiovascular Problems: Yes High Cholesterol: Yes Hypertension: Yes Immunizations Current: Yes Past Surgical History Surgical History: No Previous Surgery Social History Alcohol Use: Yes Tobacco Use: Yes Substance Use: No Allergies-Medications (Allergen,Severity, Reaction): Coded Allergies: No Known Allergies (Verified Allergy, Unknown, 09/14/17) Reported Meds & Prescriptions Reported Meds & Active Scripts Active Hydrochlorothiazide 25 Mg Tab 25 Mg PO DAILY Lisinopril 20 Mg Tab 20 Mg PO DAILY Norvasc (Amlodipine Besylate) 10 Mg Tab 10 Mg PO DAILY Catapres (Clonidine) 0.1 Mg Tab 0.1 Mg PO BID Review of Systems Except as stated in HPI: all other systems reviewed are Neg Gastrointestinal: Positive: Other (Possible umbilical hernia) Musculoskeletal: Positive: Pain (Intermittent pain in the right big toe) Physical Exam Narrative GENERAL: Well-developed, well-nourished, alert -[place] male. Presenting in no acute distress. SKIN: Warm and dry. HEAD: Atraumatic. Normocephalic. EYES: Pupils equal and round. No scleral icterus. No injection or drainage. ENT: No nasal bleeding or discharge. Mucous membranes pink and moist. NECK: Trachea midline. No JVD. CARDIOVASCULAR: Regular rate and rhythm. RESPIRATORY: No accessory muscle use. Clear to auscultation. Breath sounds equal bilaterally. GASTROINTESTINAL: Abdomen soft, non-tender, nondistended. Hepatic and splenic margins not palpable. No abnormalities in the abdominal wall noted. Positive bowel sounds, no rebound, no guarding. MUSCULOSKELETAL: Extremities without clubbing, cyanosis, or edema. No obvious deformities. No erythema or warmth to the right big toe. Full range of motion in toes and feet. 2+ dorsalis pedal pulses bilaterally. NEUROLOGICAL: Awake and alert. No obvious cranial nerve deficits. Motor grossly within normal limits. Five out of 5 muscle strength in the arms and legs. Normal speech. PSYCHIATRIC: Appropriate mood and affect; insight and judgment normal. Data Data Last Documented VS Vital Signs Date Time Temp Pulse Resp B/P (MAP) Pulse Ox O2 Delivery O2 Flow Rate FiO2 09/14/17 20:33 98.6 69 18 132/80 (97) 100 [facility] Medical Decision Making Medical Screen Exam Complete: Yes Emergency Medical Condition: No Interpretation(s) Vital Signs Date Time Temp Pulse Resp B/P (MAP) Pulse Ox O2 Delivery O2 Flow Rate FiO2 09/14/17 20:33 98.6 69 18 132/80 (97) 100 Differential Diagnosis Hernia versus arthritis versus plantar fasciitis versus normal examination versus other Narrative Course Patient is well-appearing 52-year-old male presenting for evaluation of a possible hernia and intermittent big toe pain. Patient has no sign of hernia on exam. There was no abnormalities to his right big toe, no warmth, no erythema or edema. Patient is neurovascularly intact. Patient was encouraged to follow-up with a primary doctor for routine health care. He was encouraged to return immediately for any new or worsening symptoms. A medical screening exam was performed: At the time of evaluation the presenting medical condition was determined not to be of an emergent nature. The patient was given the option of receiving additional care, but declined. Patient was given options for additional community resources from which to obtain care. The Patient Has Been advised to seek medical attention for their presenting complaint. The patient has been advised to return to the ER at any time if an emergent condition develops. Diagnosis Primary Impression: Encounter for medical screening examination Johanne Haley September 14, 2017 20:54
== END 2017-09-14 23:43 | disposition left against medical advice (07) ==
LOC: NEPD 20:31
DX: R19.05 Periumbilic swelling, mass or lump (principal); M79.674 Pain in right toe(s); E78.00 Pure hypercholesterolemia, unspecified; I10 Essential (primary) hypertension; Z72.0 Tobacco use; Z79.899 Other long term (current) drug therapy
CPT/HCPCS: 99281

== ENCOUNTER 2017-12-23 15:47 | Inpatient (IN) ==
[2017-12-23] MEDS ORDERED: Pantoprazole Inj 80 MG in Sodium Chlor 0.9% Inj 35 ML IV.SIG ONE (17:39)
[2017-12-23] MEDS ORDERED: Sod Chloride 0.9% Inj 1,000 ML IV.SIG ONE (17:39)
--- NOTE | 2017-12-23 17:42 | ED ---
HPI General Chief complaint: Syncope Stated complaint: Near Syncope Time Seen by Provider: 12/23/17 17:37 History of Present Illness HPI narrative: This is a 52-year-old male who presents via EMS. He reports that for the past week he has had abdominal pain that is worse after meals. Describes it as sharp epigastric pain. He reports that for the past 2 days he has had some nausea and vomiting. Today he reports that he had 2 episodes of black stool. He reports that when he was showering this morning he felt dizzy and lightheaded and was concerned that he may pass also when lying on his bed. Currently he is feeling mild nausea but otherwise feels well while he is lying down. Symptoms are moderate, aggravated by standing, eating, reevaluating down. He has never had this problem before. Denies flank pain, chest pain, shortness of breath, dysuria, testicular scrotal pain. He takes a baby aspirin daily. He reports that he occasionally uses [id number] Advil. Denies any history of abdominal surgeries. He has no other complaints at this time. Related Data Home Medications Medication Instructions Recorded Confirmed aspirin 81 mg PO DAILY 12/23/17 12/23/17 Allergies Allergy/AdvReac Type Severity Reaction Status Date / Time No Known Allergies Allergy Verified 12/23/17 18:25 Review of Systems ROS: all other systems reviewed are negative [facility]LY [facility] Medical History Medical History Heart attack (Acute) Hypertension (Acute) Social History Social History Substance History: Active Abuse Smoking Status: Current every day smoker Tobacco Type: Cigarettes How Often Do You Have a Drink Containing Alcohol: Monthly or less Recent Travel in [facility] within the Last 8 Weeks: No Recent Out of Country Travel within the Last 8 Weeks: No Exam Narrative Exam Narrative: GENERAL: Well-developed well-nourished male SKIN: Warm and dry. HEAD: Atraumatic. Normocephalic. EYES: Pupils equal and round. No scleral icterus. No injection or drainage. ENT: No nasal bleeding or discharge. Mucous membranes pink and moist. NECK: Trachea midline. No JVD. CARDIOVASCULAR: Regular rate and rhythm. No murmur appreciated. RESPIRATORY: No accessory muscle use. Clear to auscultation. Breath sounds equal bilaterally. GASTROINTESTINAL: Abdomen soft, tender to palpation in the epigastrium without guarding. Rectal examination reveals black Hemoccult positive stool. MUSCULOSKELETAL: No obvious deformities. No clubbing. No cyanosis. No edema. NEUROLOGICAL: Awake and alert. No obvious cranial nerve deficits. Motor grossly within normal limits. Normal speech. PSYCHIATRIC: Appropriate mood and affect; insight and judgment normal. Procedures Hemaprompt Stool Procedural Steps Taken: specimen placed in appropriate test area, developer placed on specimen and control areas and controls appropriately positive and negative Hemaprompt Stool Result: positive Course Initial Documented Vital Signs Temperature 97.9 F 12/23/17 18:03 Pulse Rate 65 12/23/17 18:03 Respiratory Rate 17 12/23/17 18:03 Blood Pressure 176/96 H 12/23/17 18:03 Pulse Oximetry 100 12/23/17 18:03 Last Documented Vital Signs Temperature 97.9 F 12/23/17 18:03 Pulse Rate 65 12/23/17 19:22 Respiratory Rate 17 12/23/17 19:22 Blood Pressure 158/84 H 12/23/17 19:22 Pulse Oximetry 100 12/23/17 19:22 Medical Decision Making MDM Narrative Medical decision making narrative: Patient was placed on ECG monitoring pulse oximetry. 12 EKG has been ordered. Lab work, CT abdomen and pelvis ordered. The patient was given Protonix bolus and normal saline bolus. Type and screen ordered. Lab work reviewed. Hemoglobin is 9.4. His baseline is approximately 14.5 so this represents a significant decrease from his baseline. BUN is 56. CT abdomen pelvis reveals no acute abnormalities. At this point time the plan is to admit the patient for acute upper GI bleed. Medical Screen Exam Complete: Yes Emergency Medical Condition: Yes Differential Diagnosis Differential Diagnosis: Peptic ulcer disease, upper GI bleed, symptomatic anemia , lower GI bleed, AV malformation, colitis, biliary colic Lab Data Result diagrams: 12/23/17 17:57 12/23/17 17:57 Lab Results 12/23/17 12/23/17 12/23/17 Range/Units 17:57 17:57 17:57 WBC 6.3 (4.0-11.0) th/mm3 RBC 3.80 L (4.50-5.90) mil/mm3 Hgb 9.4 L (13.0-17.0) gm/dL Hct 30.0 L (39.0-51.0) % MCV 78.9 L (80.0-100.0) fL MCH 24.8 L (27.0-34.0) pg MCHC 31.4 L (32.0-36.0) % RDW 15.3 (11.6-17.2) % Plt Count 176 (150-450) th/mm3 MPV 9.4 (7.0-11.0) fL Neut % (Auto) 81.5 H (16.0-70.0) % Lymph % (Auto) 14.7 (9.0-44.0) % Sutter % (Auto) 3.3 (0.0-8.0) % Eos % (Auto) 0.1 (0.0-4.0) % Baso % (Auto) 0.4 (0.0-2.0) % Neut # (Auto) 5.2 (1.8-7.7) th/mm3 Lymph # (Auto) 0.9 L (1.0-4.8) th/mm3 Sutter # (Auto) 0.2 (0.0-0.9) th/mm3 Eos # (Auto) 0.0 (0.0-0.4) th/mm3 Baso # (Auto) 0.0 (0.0-0.2) th/mm3 WBC Differential . Differential Comment Auto diff final PT (9.8-11.6) sec INR Ratio APTT (24.3-30.1) sec Sodium 140 (136-145) meq/L Potassium 4.4 (3.5-5.1) meq/L Chloride 110 H (98-107) meq/L Carbon Dioxide 22.1 (21.0-32.0) meq/L Anion Gap 8 (5-15) meq/L BUN 56 H (7-18) mg/dL Creatinine 1.22 (0.60-1.30) mg/dL Estimated GFR 76 L (>89) mL/min Random Glucose 86 (74-106) mg/dL Calcium 8.5 (8.5-10.1) mg/dL Total Bilirubin 0.2 (0.2-1.0) mg/dL AST 23 (15-37) U/L ALT 15 (12-78) U/L Alkaline Phosphatase 42 L (45-117) U/L Total Protein 6.9 (6.4-8.2) g/dL Albumin 3.3 L (3.4-5.0) g/dL Lipase 120 (73-393) U/L Urine Color (Yellw/Straw) Urine Clarity (Clear) Urine pH (5.0-8.5) Ur Specific [place] (1.002-1.035) Urine Protein (Neg-Trace) mg/dL Urine Glucose (UA) (Negative) mg/dL Urine Ketones (Negative) mg/dL Urine Occult Blood (Negative) Urine Nitrate (Negative) Urine Bilirubin (Negative) Urine Urobilinogen (Less than 2) mg/dL Ur Leukocyte Esterase (Negative) Urine WBC (0-5) /hpf Ur Squamous Epith Cells (0-5) /hpf Urine Mucus (Occasional) /lpf Micro UA Comment Ur Microscopic Review Urine Culture Comments Blood Type O Positive Blood Type Recheck Required Antibody Screen Negative 12/23/17 12/23/17 Range/Units 18:20 19:20 WBC (4.0-11.0) th/mm3 RBC (4.50-5.90) mil/mm3 Hgb (13.0-17.0) gm/dL Hct (39.0-51.0) % MCV (80.0-100.0) fL MCH (27.0-34.0) pg MCHC (32.0-36.0) % RDW (11.6-17.2) % Plt Count (150-450) th/mm3 MPV (7.0-11.0) fL Neut % (Auto) (16.0-70.0) % Lymph % (Auto) (9.0-44.0) % Sutter % (Auto) (0.0-8.0) % Eos % (Auto) (0.0-4.0) % Baso % (Auto) (0.0-2.0) % Neut # (Auto) (1.8-7.7) th/mm3 Lymph # (Auto) (1.0-4.8) th/mm3 Sutter # (Auto) (0.0-0.9) th/mm3 Eos # (Auto) (0.0-0.4) th/mm3 Baso # (Auto) (0.0-0.2) th/mm3 WBC Differential Differential Comment PT 10.7 (9.8-11.6) sec INR 1.1 Ratio APTT 18.4 L (24.3-30.1) sec Sodium (136-145) meq/L Potassium (3.5-5.1) meq/L Chloride (98-107) meq/L Carbon Dioxide (21.0-32.0) meq/L Anion Gap (5-15) meq/L BUN (7-18) mg/dL Creatinine (0.60-1.30) mg/dL Estimated GFR (>89) mL/min Random Glucose (74-106) mg/dL Calcium (8.5-10.1) mg/dL Total Bilirubin (0.2-1.0) mg/dL AST (15-37) U/L ALT (12-78) U/L Alkaline Phosphatase (45-117) U/L Total Protein (6.4-8.2) g/dL Albumin (3.4-5.0) g/dL Lipase (73-393) U/L Urine Color Straw (Yellw/Straw) Urine Clarity Clear (Clear) Urine pH 5.0 (5.0-8.5) Ur Specific [place] 1.018 (1.002-1.035) Urine Protein Negative (Neg-Trace) mg/dL Urine Glucose (UA) Negative (Negative) mg/dL Urine Ketones Negative (Negative) mg/dL Urine Occult Blood Negative (Negative) Urine Nitrate Negative (Negative) Urine Bilirubin Negative (Negative) Urine Urobilinogen Less than 2 (Less than 2) mg/dL Ur Leukocyte Esterase Negative (Negative) Urine WBC Less than 1 (0-5) /hpf Ur Squamous Epith Cells <1 (0-5) /hpf Urine Mucus Few H (Occasional) /lpf Micro UA Comment Culture not ind Ur Microscopic Review Not Reportable Urine Culture Comments Culture not ind Blood Type Blood Type Recheck Antibody Screen Imaging Data Radiologist's impression: Abdomen/Pelvis CT 12/23/17 17:39 CONCLUSION: 1. No acute intra-abdominal process. 2. Degenerative changes involving the lower lumbar spine. Discharge Plan Discharge Disposition Patient Disposition: 30 Still Patient Discharge Condition Condition: Stable Discharge Details Diagnosis: Acute upper GI bleed Physicians Team ED Provider: Domingo Weston ED Midlevel Provider: Steven Camacho Primary Care Provider: Primary Care Ines Izquierdo Attending Provider: Evy Martinez Status ED Status: Admitted Patient
[2017-12-23 18:34] LABS: Albumin 3.3 g/dL (3.4-5.0); Anion Gap 8 meq/L (5-15); Aspartate Aminotransferase 23 U/L (15-37); Blood Urea Nitrogen 56 mg/dL (7-18); Calcium 8.5 mg/dL (8.5-10.1); Carbon Dioxide 22.1 meq/L (21.0-32.0); Chloride 110 meq/L (98-107); Glomerular Filtration Rate 76 mL/min (>89); Glucose,Random 86 mg/dL (74-106); Lipase 120 U/L (73-393); Potassium 4.4 meq/L (3.5-5.1); Sodium 140 meq/L (136-145)
[2017-12-23 18:35] LABS: Alanine Aminotransferase 15 U/L (12-78)
[2017-12-23 18:36] LABS: Baso % (Auto) 0.4 % (0.0-2.0); Eos % (Auto) 0.1 % (0.0-4.0); Hemoglobin 9.4 gm/dL (13.0-17.0); Lymph # (Auto) 0.9 th/mm3 (1.0-4.8); Lymph % (Auto) 14.7 % (9.0-44.0); Mean Corpuscular HGB Conc 31.4 % (32.0-36.0); Mean Corpuscular Hemoglobin 24.8 pg (27.0-34.0); Mean Corpuscular Volume 78.9 fL (80.0-100.0); Mean Platelet Volume 9.4 fL (7.0-11.0); Mono # (Auto) 0.2 th/mm3 (0.0-0.9); Mono % (Auto) 3.3 % (0.0-8.0); Neut # (Auto) 5.2 th/mm3 (1.8-7.7); Neut % (Auto) 81.5 % (16.0-70.0); Platelet Count 176 th/mm3 (150-450); Red Cell Distribution Width 15.3 % (11.6-17.2); White Blood Count 6.3 th/mm3 (4.0-11.0)
[2017-12-23 18:37] LABS: Alkaline Phosphatase 42 U/L (45-117); Total Protein 6.9 g/dL (6.4-8.2)
[2017-12-23 18:47] LABS: Bilirubin,Urine Negative (Negative); Clarity,Urine Clear (Clear); Color,Urine Straw (Yellw/Straw); Glucose,Urine (UA) Negative (Negative); Leukocyte Esterase,Urine Negative (Negative); Mucus,Urine Few /lpf (Occasional); Nitrite,Urine Negative (Negative); Specific Gravity,Urine 1.018 (1.002-1.035); Squamous Epithelial Cell,Urine <1 /hpf (0-5)
[2017-12-23 19:49] LABS: Activated Partial Thrombo Time 18.4 sec (24.3-30.1); INR 1.1 Ratio; Prothrombin Time 10.7 sec (9.8-11.6)
--- NOTE | 2017-12-23 19:54 | CT ---
EXAM DATE: 12/23/2017 7:45 PM EDT AGE/SEX: 52 years / Male INDICATIONS: Mid abdominal pain for two weeks, nausea, vomiting. CLINICAL DATA: This is the patient's initial encounter. Patient reports that signs and symptoms have been present for 2 weeks and indicates a pain score of 4/10. MEDICAL/SURGICAL HISTORY: None. None. ORAL CONTRAST: No oral contrast ingested. RADIATION DOSE: 6.64 CTDI (mGy) COMPARISON: No prior exams available for comparison. TECHNIQUE: Multiple contiguous axial images were obtained through the abdomen and pelvis following b olus infusion of 66 ml Omnipaque 350 (iohexol) nonionic water-soluble contrast as a single exam dos e. No oral contrast ingested. Using automated exposure control and adjustment of the mA and/or kV ac cording to patient size, radiation dose was kept as low as reasonably achievable to obtain optimal di agnostic quality images. DICOM format image data is available electronically for review and comparis on. FINDINGS: Lower Lungs: The visualized lower lungs are clear. Liver: The liver has a homogeneous density without space-occupying lesion. There is no dilation of th e biliary tree. Spleen: Homogeneous density without enlargement. Pancreas: Unremarkable without mass or calcification. Kidneys: Normal in size and shape. No evidence of mass or hydronephrosis. Adrenal Glands: Unremarkable. Aorta: The aorta and proximal iliac vessels are grossly unremarkable without aneurysmal dilation. Bowel/Mesentery: The bowel loops are grossly unremarkable. The cecum and sigmoid colon have a normal configuration. Abdominal Wall: Intact. Retroperitoneum: No evidence of adenopathy in the retrocrural, para-aortic, or deep pelvic regions. Bladder: Contours are smooth. Reproductive Organs: No abnormal masses or calcifications seen. Inguinal: The inguinal region is unremarkable without evidence of adenopathy. Bony Structures: Degenerative changes are noted involving the lower lumbar spine. CONCLUSION: 1. No acute intra-abdominal process. 2. Degenerative changes involving the lower lumbar spine. Electronically signed by: Abel Zapien MD 12/23/2017 7:53 PM EDT
--- NOTE | 2017-12-23 21:02 | P.HP ---
History of Present Illness Service: [facility] Primary Care Physician: No Primary Care Physician History of Present Illness: 52-year-old male with past medical history significant for coronary artery disease and hypertension presents to the emergency department for the evaluation of upper GI bleed. The patient reports that for approximately the past week he has been having intermittent, crampy abdominal pain. He reports associated anorexia. He had an incident of coffee-ground emesis early this morning and black, tarry stools that also began today. He reports he was in the shower when he became dizzy and lightheaded. He went to lay down and then went to work where his symptoms persisted. He was Hemoccult positive in the emergency department. He denies any chest pain or shortness of breath. No fever/chills. No lateralizing signs/symptoms. Inpatient Certification: I certify that the inpatient services were ordered in accordance with Medicare regulations governing the order. This includes certification that hospital inpatient services are reasonable and necessary and in the case of services not specified as inpatient-only under 42 CFR 419.22(n), that they are appropriately provided as inpatient services in accordance to with the 2-midnight benchmark under 43 CFR 412.3(e) Review of Systems All other systems reviewed negative except as stated in HPI PMFSH - History History Provided By: Patient - Medical History Medical History: Medical History (Last Updated 12/23/17 @ 18:06 by Cathy Hernandez) Heart attack Hypertension - Surgical History Surgical History: Surgical History (Last Updated 12/23/17 @ 20:58 by Evy Martinez MD) No history of previous surgery - Family History Family History: Family History (Last Updated 12/23/17 @ 20:58 by Evy Martinez MD) Other Family history normal - Tobacco History Tobacco Use In Past 30 Days: Yes Smoking Status: Current every day smoker Tobacco Type: Cigarettes - Alcohol History How Often Do You Have a Drink Containing Alcohol: Monthly or less - Substance Use History Substance History: Active Abuse - Substance Use Type Marijuana Status: Active Route Used: Inhalation Last Used: LAST NIGHT - Travel History Recent Travel in the [place] Within the Last 8 Weeks: No Recent Travel Out of the Country Within the Last 8 Weeks: No - Immunization History Tetanus Immunization: Unsure Hx Influenza Vaccine This Season: No Medications and Allergies Active Medications: Active Medications Sodium Chloride (Ns Inj) 1,000 mls @ 100 mls/hr IV.CONT .Q10H [place] Ondansetron HCl (Zofran Inj) 4 mg IV.PUSH Q6H PRN PRN Reason: NAUSEA OR VOMITING Pantoprazole Sodium (Protonix) 40 mg PO DAILY [place] Sodium Chloride (Ns Flush) 2 ml IV.FLUSH PRN PRN PRN Reason: FLUSH AFTER USING IV ACCESS Sodium Chloride (Ns Flush) 2 ml IV.FLUSH BID [place] Sodium Chloride (Ns Flush) 2 ml IV.FLUSH PRN PRN PRN Reason: FLUSH AFTER USING IV ACCESS Allergies Allergy/AdvReac Type Severity Reaction Status Date / Time No Known Allergies Allergy Verified 12/23/17 18:25 Home Medications Medication Instructions Recorded Confirmed Type aspirin 81 mg PO DAILY 12/23/17 12/23/17 History Exam Vital signs: Vital Signs 12/23/17 18:03 12/23/17 19:22 Temperature 97.9 F Pulse Rate 65 65 Respiratory Rate 17 17 Blood Pressure 176/96 H 158/84 H Pulse Oximetry 100 100 Intake & Output 12/23/17 12/23/17 12/24/17 06:59 18:59 06:59 Intake Total 35 / 35 1000 / 1000 Balance 35 / 35 1000 / 1000 Weight 78.925 kg Intake: IV 35 / 35 1000 / 1000 Protonix Inj 80 MG In NS Inj 35 35 / 35 ML @ 420 mls/hr IV.SIG BOLUS ONE Rx#:[id number] NS Inj 1,000 ML @ Wide Open IV. 1000 / 1000 SIG BOLUS ONE Rx#:[id number] Narrative: Gen.: No acute distress Head: Normocephalic. Atraumatic. EENT: Pupils equal round and reactive to light. Nose without drainage. Airway intact. Throat without injection. Cardiovascular: Regular rate and rhythm. No murmurs, rubs or gallops. Respiratory: Lungs clear to auscultation bilaterally. No wheezes or rhonchi. Abdomen: Soft, nontender, nondistended. No peritoneal signs. Musculoskeletal: No gross deformities. No edema. Skin: No obvious rashes or erythema. Neuro: Sensory and motor grossly intact. Cranial nerves II through XII grossly intact. Results - Labs CBC & Chem 7: 12/23/17 17:57 12/23/17 17:57 Labs: Laboratory Results - last 24 hr 12/23/17 12/23/1718 17:57 17:57 17:57 WBC 6.3 RBC 3.80 L Hgb 9.4 L Hct 30.0 L MCV 78.9 L MCH 24.8 L MCHC 31.4 L RDW 15.3 Plt Count 176 MPV 9.4 Neut % (Auto) 81.5 H Lymph % (Auto) 14.7 [place]ke % (Auto) 3.3 Eos % (Auto) 0.1 Baso % (Auto) 0.4 Neut # (Auto) 5.2 Lymph # (Auto) 0.9 L [place]ke # (Auto) 0.2 Eos # (Auto) 0.0 Baso # (Auto) 0.0 WBC Differential . Differential Comment Auto diff final PT INR APTT Sodium 140 Potassium 4.4 Chloride 110 H Carbon Dioxide 22.1 Anion Gap 8 BUN 56 H Creatinine 1.22 Estimated GFR 76 L Random Glucose 86 Calcium 8.5 Total Bilirubin 0.2 AST 23 ALT 15 Alkaline Phosphatase 42 L Total Protein 6.9 Albumin 3.3 L Lipase 120 Urine Color Urine Clarity Urine pH Ur Specific [place] Urine Protein Urine Glucose (UA) Urine Ketones Urine Occult Blood Urine Nitrate Urine Bilirubin Urine Urobilinogen Ur Leukocyte Esterase Urine WBC Ur Squamous Epith Cells Urine Mucus Micro UA Comment Ur Microscopic Review Urine Culture Comments Blood Type O Positive Blood Type Recheck Required Antibody Screen Negative 12/23/17 12/23/17 18:20 19:20 WBC RBC Hgb Hct MCV MCH MCHC RDW Plt Count MPV Neut % (Auto) Lymph % (Auto) [place] % (Auto) Eos % (Auto) Baso % (Auto) Neut # (Auto) Lymph # (Auto) [place] # (Auto) Eos # (Auto) Baso # (Auto) WBC Differential Differential Comment PT 10.7 INR 1.1 APTT 18.4 L Sodium Potassium Chloride Carbon Dioxide Anion Gap BUN Creatinine Estimated GFR Random Glucose Calcium Total Bilirubin AST ALT Alkaline Phosphatase Total Protein Albumin Lipase Urine Color Straw Urine Clarity Clear Urine pH 5.0 Ur Specific [place] 1.018 Urine Protein Negative Urine Glucose (UA) Negative Urine Ketones Negative Urine Occult Blood Negative Urine Nitrate Negative Urine Bilirubin Negative Urine Urobilinogen Less than 2 Ur Leukocyte Esterase Negative Urine WBC Less than 1 Ur Squamous Epith Cells <1 Urine Mucus Few H Micro UA Comment Culture not ind Ur Microscopic Review Not Reportable Urine Culture Comments Culture not ind Blood Type Blood Type Recheck Antibody Screen - Imaging Impressions Abdomen/Pelvis CT 12/23/17 17:39 CONCLUSION: 1. No acute intra-abdominal process. 2. Degenerative changes involving the lower lumbar spine. Caprini VTE Risk Assessment Caprini VTE Risk Assessment: No/Low Risk (score <= 1) Caprini Risk Assessment Model: Point Value = 1 Point Value = 2 Point Value = 3 Point Value = 5 Age 41-60 Minor surgery BMI > 25 kg/m2 Swollen legs Varicose veins or History of unexplained or recurrent spontaneous Oral contraceptives or hormone replacement Sepsis (< 1 month) Serious lung disease, including pneumonia (< 1 month) Abnormal pulmonary function Acute myocardial infarction Congestive heart failure (< 1 month) History of inflammatory bowel disease Medical patient at bed rest Age 61-74 Arthroscopic surgery Major open surgery (> 45 min) Laparoscopic surgery (> 45 min) Malignancy Confined to bed (> 72 hours) Immobilizing plaster cast Central venous access Age >= 75 History of VTE Family history of VTE Factor V Leiden Prothrombin [id number] Lupus anticoagulant Anticardiolipin antibodies Elevated serum homocysteine Heparin-induced thrombocytopenia Other congenital or acquired thrombophilia Stroke (< 1 month) Elective arthroplasty Hip, pelvis, or leg fracture Acute spinal cord injury (< 1 month) Prophylaxis Regimen: Total Risk Factor Score Risk Level Prophylaxis Regimen 0-1 Low Early ambulation 2 Moderate Order ONE of the following: *Sequential Compression Device (SCD) *Heparin 5000 units SQ BID 3-4 Higher Order ONE of the following medications: *Heparin 5000 units SQ TID *Enoxaparin/Lovenox 40 mg SQ daily (WT < 150 kg, CrCl > 30 mL/min) *Enoxaparin/Lovenox 30 mg SQ daily (WT < 150 kg, CrCl > 10-29 mL/min) *Enoxaparin/Lovenox 30 mg SQ BID (WT < 150 kg, CrCl > 30 mL/min) AND/OR *Sequential Compression Device (SCD) 5 or more Highest Order ONE of the following medications: *Heparin 5000 units SQ TID (Preferred with Epidurals) *Enoxaparin/Lovenox 40 mg SQ daily (WT < 150 kg, CrCl > 30 mL/min) *Enoxaparin/Lovenox 30 mg SQ daily (WT < 150 kg, CrCl > 10-29 mL/min) *Enoxaparin/Lovenox 30 mg SQ BID (WT < 150 kg, CrCl > 30 mL/min) AND *Sequential Compression Device (SCD) Assessment and Plan - Plan Assessment/plan: 1. Upper GI bleed Every 6 hours H&H IV Protonix N.p.o. Gastroenterology consulted, appreciate recommendations Transfuse as needed 2. Hypertension Vasotec as needed 3. Coronary artery disease Holding home aspirin given GI bleed FEN N.p.o. Electrolytes: Monitor and replete as needed NS at 100 cc/hour
[2017-12-23] MEDS: Sod Chloride 0.9% Inj 1,000 ML IV.CONT SCH (21:46)
[2017-12-24 00:54] LABS: Hematocrit 22.2 % (39.0-51.0); Hemoglobin 7.1 gm/dL (13.0-17.0)
[2017-12-24] MEDS ORDERED: Sodium Chlor 0.9% Inj 250 ML IV.SIG SCH (02:00)
[2017-12-24 03:52] LABS: Baso % (Auto) 0.4 % (0.0-2.0); Eos % (Auto) 0.9 % (0.0-4.0); Lymph # (Auto) 1.7 th/mm3 (1.0-4.8); Lymph % (Auto) 37.7 % (9.0-44.0); Mean Corpuscular HGB Conc 31.4 % (32.0-36.0); Mean Corpuscular Hemoglobin 24.3 pg (27.0-34.0); Mean Corpuscular Volume 77.5 fL (80.0-100.0); Mono # (Auto) 0.4 th/mm3 (0.0-0.9); Mono % (Auto) 7.9 % (0.0-8.0); Neut # (Auto) 2.4 th/mm3 (1.8-7.7); Neut % (Auto) 53.1 % (16.0-70.0); Platelet Count 165 th/mm3 (150-450); Red Blood Count 2.84 mil/mm3 (4.50-5.90); Red Cell Distribution Width 15.1 % (11.6-17.2); White Blood Count 4.6 th/mm3 (4.0-11.0)
[2017-12-24 04:00] LABS: Hemoglobin 6.9 gm/dL (13.0-17.0)
[2017-12-24 04:34] LABS: Alanine Aminotransferase 11 U/L (12-78); Albumin 2.7 g/dL (3.4-5.0); Alkaline Phosphatase 34 U/L (45-117); Anion Gap 10 meq/L (5-15); Aspartate Aminotransferase 13 U/L (15-37); Blood Urea Nitrogen 38 mg/dL (7-18); Carbon Dioxide 22.9 meq/L (21.0-32.0); Chloride 112 meq/L (98-107); Glomerular Filtration Rate 71 mL/min (>89); Glucose,Random 78 mg/dL (74-106); Potassium 3.8 meq/L (3.5-5.1); Sodium 145 meq/L (136-145); Total Protein 5.6 g/dL (6.4-8.2)
[2017-12-24 07:31] VITALS: O2SAT 100
[2017-12-24] MEDS: Sod Chloride 0.9% Inj 1,000 ML IV.CONT SCH ×2 (10:18→19:42)
--- NOTE | 2017-12-24 10:54 | P.CONGI ---
History of Present Illness Chief complaint: Upper GI Bleed History of Present Illness: This is 52-year-old male with past medical history significant for coronary artery disease and hypertension presents to the emergency department for the evaluation of upper GI bleed. Patient endorses epigastric pain for the past 2 weeks, worse on empty stomach but also bad with eating. He reports coffee- ground emesis and black, tarry stools that began yesterday, non since admission. He reports he was in the shower when he became dizzy and lightheaded. He was Hemoccult positive in the emergency department. Denies previous hx of this, denies being on blood thinner. He takes Aleve occasionally , he is taking ASA. Denies ever having EGD/colonoscopy before. Denies hematochezia. Ct done with No acute intra-abdominal process. hgb dropped from 9.4 ---> 6.9, he is receiving blood transfusion. PPI started <Bridget Rain - Last Filed: 12/24/17 10:43> Review of Systems All other systems reviewed negative except as stated in HPI <Bridget Rain - Last Filed: 12/24/17 10:43> PMFSH - History History Provided By: Patient - Medical History Medical History: Medical History (Last Updated 12/23/17 @ 18:06 by Cathy Hernandez) Heart attack Hypertension - Surgical History Surgical History: Surgical History (Last Updated 12/23/17 @ 20:58 by Evy Martinez MD) No history of previous surgery - Family History Family History: Family History (Last Updated 12/23/17 @ 20:58 by Evy Martinez MD) Other Family history normal - Tobacco History Second Hand Smoke Exposure: No Tobacco Use In Past 30 Days: Yes Smoking Status: Light tobacco smoker Tobacco Type: Cigars - Alcohol History How Often Do You Have a Drink Containing Alcohol: Monthly or less - Substance Use History Substance History: Active Abuse - Substance Use Type Marijuana Type: marijuana Status: Active Route Used: Inhalation Last Used: LAST NIGHT Reason for Use: Calm Down Comment: "it eases my stomach pain" - Travel History Recent Travel in the [place] Within the Last 8 Weeks: No Recent Travel Out of the Country Within the Last 8 Weeks: No - Immunization History Tetanus Immunization: Unsure Hx Influenza Vaccine This Season: No <Bridget Rain - Last Filed: 12/24/17 10:43> - Medical History Medical History: Medical History (Last Updated 12/23/17 @ 18:06 by Cathy Hernandez) Heart attack Hypertension - Surgical History Surgical History: Surgical History (Last Updated 12/23/17 @ 20:58 by Evy Martinez MD) No history of previous surgery - Family History Family History: Family History (Last Updated 12/23/17 @ 20:58 by Evy Martinez MD) Other Family history normal <Jude Anne - Last Filed: 12/24/17 11:51> Medications and Allergies Active Medications: Active Medications Enalaprilat (Vasotec Inj) 2.5 mg IV.PUSH Q6H PRN PRN Reason: SBP>160, DBP>90 Sodium Chloride (Ns Inj) 1,000 mls @ 100 mls/hr IV.CONT .Q10H [facility] Last Admin: 12/24/17 10:18 Dose: 100 mls/hr Sodium Chloride (Ns Inj) 250 mls @ 15 mls/hr IV.SIG ONCE [facility] Stop: 12/24/17 18:39 Last Admin: 12/24/17 04:49 Dose: 15 mls/hr Ondansetron HCl (Zofran Inj) 4 mg IV.PUSH Q6H PRN PRN Reason: NAUSEA OR VOMITING Pantoprazole Sodium (Protonix) 40 mg PO DAILY [facility] Last Admin: 12/24/17 10:07 Dose: 40 mg Sodium Chloride (Ns Flush) 2 ml IV.FLUSH BID [facility] Last Admin: 12/24/17 10:13 Dose: 2 ml Sodium Chloride (Ns Flush) 2 ml IV.FLUSH PRN PRN PRN Reason: FLUSH AFTER USING IV ACCESS <Bridget Rain - Last Filed: 12/24/17 10:43> Active Medications: Active Medications Enalaprilat (Vasotec Inj) 2.5 mg IV.PUSH Q6H PRN PRN Reason: SBP>160, DBP>90 Sodium Chloride (Ns Inj) 1,000 mls @ 100 mls/hr IV.CONT .Q10H [facility] Last Admin: 12/24/17 10:18 Dose: 100 mls/hr Sodium Chloride (Ns Inj) 250 mls @ 15 mls/hr IV.SIG ONCE [facility] Stop: 12/24/17 18:39 Last Admin: 12/24/17 04:49 Dose: 15 mls/hr Ondansetron HCl (Zofran Inj) 4 mg IV.PUSH Q6H PRN PRN Reason: NAUSEA OR VOMITING Pantoprazole Sodium (Protonix) 40 mg PO DAILY [facility] Last Admin: 12/24/17 10:07 Dose: 40 mg Sodium Chloride (Ns Flush) 2 ml IV.FLUSH BID [facility] Last Admin: 12/24/17 10:13 Dose: 2 ml Sodium Chloride (Ns Flush) 2 ml IV.FLUSH PRN PRN PRN Reason: FLUSH AFTER USING IV ACCESS <Jude Anne A - Last Filed: 12/24/17 11:51> Allergies Allergy/AdvReac Type Severity Reaction Status Date / Time No Known Allergies Allergy Verified 12/23/17 18:25 Home Medications Medication Instructions Recorded Confirmed Type aspirin 81 mg PO DAILY 12/23/17 12/23/17 History amlodipine 10 mg PO DAILY 12/24/17 12/24/17 History clonidine HCl 0.1 mg PO DAILY 12/24/17 12/24/17 History hydrochlorothiazide 25 mg PO DAILY 12/24/17 12/24/17 History lisinopril 20 mg PO DAILY 12/24/17 12/24/17 History Exam Vital signs: Vital Signs 12/23/17 18:03 12/23/17 19:22 12/23/17 23:07 Temperature 97.9 F 98.6 F Pulse Rate 65 65 75 Respiratory Rate 17 17 19 Blood Pressure 176/96 H 158/84 H 139/82 Pulse Oximetry 100 100 100 12/24/17 04:56 12/24/17 05:14 12/24/17 05:16 Temperature 98.1 F 98.2 F 98.2 F Pulse Rate 59 L 59 L 59 L Respiratory Rate 16 16 16 Blood Pressure 144/83 H 138/81 138/81 Pulse Oximetry 100 99 99 12/24/17 07:28 Temperature 98.1 F Pulse Rate 60 Respiratory Rate 14 Blood Pressure 142/84 H Pulse Oximetry 100 Intake & Output 12/23/17 12/24/17 12/24/17 18:59 06:59 18:59 Intake Total 35 / 35 1000 / 1000 700 / 700 Balance 35 / 35 1000 / 1000 700 / 700 Weight 78.925 kg 79.379 kg Intake: IV 35 / 35 1000 / 1000 700 / 700 NS Inj 1,000 ML @ 100 mls/hr IV 700 / 700 .CONT .Q10H [facility] Rx#:[id number] Protonix Inj 80 MG In NS Inj 35 35 / 35 ML @ 420 mls/hr IV.SIG BOLUS ONE Rx#:[id number] NS Inj 1,000 ML @ Wide Open IV. 1000 / 1000 SIG BOLUS ONE Rx#:[id number] Intake (Blood Product) Amt 0 / 0 Rbc As-3 Leukoreduced Unit 0 / 0 [id number] Other: Date of Last Bowel Movement 12/23/17 Weight On Admission 78.925 kg - Constitutional no acute distress - Routine HEENT Exam Head: Present: normocephalic - Routine Neck Exam Present: supple - Routine Respiratory Exam Present: CTA bilaterally - Routine Cardiovascular Exam Present: RRR - Routine Abdominal Exam Present: soft, normoactive bowel sounds, tenderness. Absent: distended, rebound - Routine Skin Exam Present: intact, dry - Routine Neurological Exam Present: alert, oriented X3 <Bridget Rain - Last Filed: 12/24/17 10:43> Vital signs: Vital Signs 12/23/17 18:03 12/23/17 19:22 12/23/17 23:07 Temperature 97.9 F 98.6 F Pulse Rate 65 65 75 Respiratory Rate 17 17 19 Blood Pressure 176/96 H 158/84 H 139/82 Pulse Oximetry 100 100 100 12/24/17 04:56 12/24/17 05:14 12/24/17 05:16 Temperature 98.1 F 98.2 F 98.2 F Pulse Rate 59 L 59 L 59 L Respiratory Rate 16 16 16 Blood Pressure 144/83 H 138/81 138/81 Pulse Oximetry 100 99 99 12/24/17 07:28 Temperature 98.1 F Pulse Rate 60 Respiratory Rate 14 Blood Pressure 142/84 H Pulse Oximetry 100 Intake & Output 12/23/17 12/24/17 12/24/17 18:59 06:59 18:59 Intake Total 35 / 35 1000 / 1000 700 / 700 Balance 35 / 35 1000 / 1000 700 / 700 Weight 78.925 kg 79.379 kg Intake: IV 35 / 35 1000 / 1000 700 / 700 NS Inj 1,000 ML @ 100 mls/hr IV 700 / 700 .CONT .Q10H [facility] Rx#:[id number] Protonix Inj 80 MG In NS Inj 35 35 / 35 ML @ 420 mls/hr IV.SIG BOLUS ONE Rx#:[id number] NS Inj 1,000 ML @ Wide Open IV. 1000 / 1000 SIG BOLUS ONE Rx#:[id number] Intake (Blood Product) Amt 0 / 0 Rbc As-3 Leukoreduced Unit 0 / 0 [id number] Other: Date of Last Bowel Movement 12/23/17 Weight On Admission 78.925 kg <Jude Anne - Last Filed: 12/24/17 11:51> Results - Labs CBC & Chem 7: 12/24/17 03:20 12/24/17 03:20 Labs: Laboratory Results - last 24 hr 12/23/17 12/23/17 12/23/17 17:57 17:57 17:57 WBC 6.3 RBC 3.80 L Hgb 9.4 L Hct 30.0 L MCV 78.9 L MCH 24.8 L MCHC 31.4 L RDW 15.3 Plt Count 176 MPV 9.4 Prelim Diff (Auto) Neut % (Auto) 81.5 H Lymph % (Auto) 14.7 Dane % (Auto) 3.3 Eos % (Auto) 0.1 Baso % (Auto) 0.4 Neut # (Auto) 5.2 Lymph # (Auto) 0.9 L Dane # (Auto) 0.2 Eos # (Auto) 0.0 Baso # (Auto) 0.0 WBC Differential . Differential Comment Auto diff final PT INR APTT Sodium 140 Potassium 4.4 Chloride 110 H Carbon Dioxide 22.1 Anion Gap 8 BUN 56 H Creatinine 1.22 Estimated GFR 76 L Random Glucose 86 Calcium 8.5 Total Bilirubin 0.2 AST 23 ALT 15 Alkaline Phosphatase 42 L Total Protein 6.9 Albumin 3.3 L Lipase 120 Urine Color Urine Clarity Urine pH Ur Specific [place] Urine Protein Urine Glucose (UA) Urine Ketones Urine Occult Blood Urine Nitrate Urine Bilirubin Urine Urobilinogen Ur Leukocyte Esterase Urine WBC Ur Squamous Epith Cells Urine Mucus Micro UA Comment Ur Microscopic Review Urine Culture Comments Blood Type O Positive Blood Type Recheck Required Antibody Screen Negative MTS Gel Crossmatch 12/23/17 12/23/17 12/23/17 18:20 19:20 23:57 WBC RBC Hgb 7.1 L D Hct 22.2 L MCV MCH MCHC RDW Plt Count MPV Prelim Diff (Auto) Neut % (Auto) Lymph % (Auto) Dane % (Auto) Eos % (Auto) Baso % (Auto) Neut # (Auto) Lymph # (Auto) Dane # (Auto) Eos # (Auto) Baso # (Auto) WBC Differential Differential Comment PT 10.7 INR 1.1 APTT 18.4 L Sodium Potassium Chloride Carbon Dioxide Anion Gap BUN Creatinine Estimated GFR Random Glucose Calcium Total Bilirubin AST ALT Alkaline Phosphatase Total Protein Albumin Lipase Urine Color Straw Urine Clarity Clear Urine pH 5.0 Ur Specific [place] 1.018 Urine Protein Negative Urine Glucose (UA) Negative Urine Ketones Negative Urine Occult Blood Negative Urine Nitrate Negative Urine Bilirubin Negative Urine Urobilinogen Less than 2 Ur Leukocyte Esterase Negative Urine WBC Less than 1 Ur Squamous Epith Cells <1 Urine Mucus Few H Micro UA Comment Culture not ind Ur Microscopic Review Not Reportable Urine Culture Comments Culture not ind Blood Type Blood Type Recheck Antibody Screen MTS Gel Crossmatch 12/24/17 12/24/17 12/24/17 03:20 03:20 04:00 WBC 4.6 RBC 2.84 L Hgb 6.9 L* Hct 22.0 L MCV 77.5 L MCH 24.3 L MCHC 31.4 L RDW 15.1 Plt Count 165 MPV 9.0 Prelim Diff (Auto) [employer] Neut % (Auto) 53.1 Lymph % (Auto) 37.7 Dane % (Auto) 7.9 Eos % (Auto) 0.9 Baso % (Auto) 0.4 Neut # (Auto) 2.4 Lymph # (Auto) 1.7 Dane # (Auto) 0.4 Eos # (Auto) 0.0 Baso # (Auto) 0.0 WBC Differential . Differential Comment Auto diff final PT INR APTT Sodium 145 Potassium 3.8 Chloride 112 H Carbon Dioxide 22.9 Anion Gap 10 BUN 38 H Creatinine 1.29 Estimated GFR 71 L Random Glucose 78 Calcium 8.0 L Total Bilirubin 0.2 AST 13 L ALT 11 L Alkaline Phosphatase 34 L Total Protein 5.6 L D Albumin 2.7 L D Lipase Urine Color Urine Clarity Urine pH Ur Specific [place] Urine Protein Urine Glucose (UA) Urine Ketones Urine Occult Blood Urine Nitrate Urine Bilirubin Urine Urobilinogen Ur Leukocyte Esterase Urine WBC Ur Squamous Epith Cells Urine Mucus Micro UA Comment Ur Microscopic Review Urine Culture Comments Blood Type Blood Type Recheck Antibody Screen MTS Gel Crossmatch See Detail - Imaging Impressions Abdomen/Pelvis CT 12/23/17 17:39 CONCLUSION: 1. No acute intra-abdominal process. 2. Degenerative changes involving the lower lumbar spine. <Birdget Rain - Last Filed: 12/24/17 10:43> - Labs CBC & Chem 7: 12/24/17 03:20 12/24/17 03:20 Labs: Laboratory Results - last 24 hr 12/23/17 12/23/17 12/23/17 17:57 17:57 17:57 WBC 6.3 RBC 3.80 L Hgb 9.4 L Hct 30.0 L MCV 78.9 L MCH 24.8 L MCHC 31.4 L RDW 15.3 Plt Count 176 MPV 9.4 Prelim Diff (Auto) Neut % (Auto) 81.5 H Lymph % (Auto) 14.7 Dane % (Auto) 3.3 Eos % (Auto) 0.1 Baso % (Auto) 0.4 Neut # (Auto) 5.2 Lymph # (Auto) 0.9 L [place]ane # (Auto) 0.2 Eos # (Auto) 0.0 Baso # (Auto) 0.0 WBC Differential . Differential Comment Auto diff final PT INR APTT Sodium 140 Potassium 4.4 Chloride 110 H Carbon Dioxide 22.1 Anion Gap 8 BUN 56 H Creatinine 1.22 Estimated GFR 76 L Random Glucose 86 Calcium 8.5 Total Bilirubin 0.2 AST 23 ALT 15 Alkaline Phosphatase 42 L Total Protein 6.9 Albumin 3.3 L Lipase 120 Urine Color Urine Clarity Urine pH Ur Specific [place] Urine Protein Urine Glucose (UA) Urine Ketones Urine Occult Blood Urine Nitrate Urine Bilirubin Urine Urobilinogen Ur Leukocyte Esterase Urine WBC Ur Squamous Epith Cells Urine Mucus Micro UA Comment Ur Microscopic Review Urine Culture Comments Blood Type O Positive Blood Type Recheck Required Antibody Screen Negative MTS Gel Crossmatch 12/23/17 12/23/17 12/23/17 18:20 19:20 23:57 WBC RBC Hgb 7.1 L D Hct 22.2 L MCV MCH MCHC RDW Plt Count MPV Prelim Diff (Auto) Neut % (Auto) Lymph % (Auto) Dane % (Auto) Eos % (Auto) Baso % (Auto) Neut # (Auto) Lymph # (Auto) Dane # (Auto) Eos # (Auto) Baso # (Auto) WBC Differential Differential Comment PT 10.7 INR 1.1 APTT 18.4 L Sodium Potassium Chloride Carbon Dioxide Anion Gap BUN Creatinine Estimated GFR Random Glucose Calcium Total Bilirubin AST ALT Alkaline Phosphatase Total Protein Albumin Lipase Urine Color Straw Urine Clarity Clear Urine pH 5.0 Ur Specific [place] 1.018 Urine Protein Negative Urine Glucose (UA) Negative Urine Ketones Negative Urine Occult Blood Negative Urine Nitrate Negative Urine Bilirubin Negative Urine Urobilinogen Less than 2 Ur Leukocyte Esterase Negative Urine WBC Less than 1 Ur Squamous Epith Cells <1 Urine Mucus Few H Micro UA Comment Culture not ind Ur Microscopic Review Not Reportable Urine Culture Comments Culture not ind Blood Type Blood Type Recheck Antibody Screen MTS Gel Crossmatch 12/24/17 12/24/17 12/24/17 03:20 03:20 04:00 WBC 4.6 RBC 2.84 L Hgb 6.9 L* Hct 22.0 L MCV 77.5 L MCH 24.3 L MCHC 31.4 L RDW 15.1 Plt Count 165 MPV 9.0 Prelim Diff (Auto) [employer] Neut % (Auto) 53.1 Lymph % (Auto) 37.7 Dane % (Auto) 7.9 Eos % (Auto) 0.9 Baso % (Auto) 0.4 Neut # (Auto) 2.4 Lymph # (Auto) 1.7 Dane # (Auto) 0.4 Eos # (Auto) 0.0 Baso # (Auto) 0.0 WBC Differential . Differential Comment Auto diff final PT INR APTT Sodium 145 Potassium 3.8 Chloride 112 H Carbon Dioxide 22.9 Anion Gap 10 BUN 38 H Creatinine 1.29 Estimated GFR 71 L Random Glucose 78 Calcium 8.0 L Total Bilirubin 0.2 AST 13 L ALT 11 L Alkaline Phosphatase 34 L Total Protein 5.6 L D Albumin 2.7 L D Lipase Urine Color Urine Clarity Urine pH Ur Specific [place] Urine Protein Urine Glucose (UA) Urine Ketones Urine Occult Blood Urine Nitrate Urine Bilirubin Urine Urobilinogen Ur Leukocyte Esterase Urine WBC Ur Squamous Epith Cells Urine Mucus Micro UA Comment Ur Microscopic Review Urine Culture Comments Blood Type Blood Type Recheck Antibody Screen MTS Gel Crossmatch See Detail - Imaging Impressions Abdomen/Pelvis CT 12/23/17 17:39 CONCLUSION: 1. No acute intra-abdominal process. 2. Degenerative changes involving the lower lumbar spine. <Jude Anne - Last Filed: 12/24/17 11:51> Assessment and Plan - Plan - Upper GI bleed/epigastric pain- Patient endorses epigastric pain for the past 2 weeks, worse on empty stomach but also bad with eating. He reports coffee-ground emesis and black, tarry stools that began yesterday, non since admission. He reports he was in the shower when he became dizzy and lightheaded. He was Hemoccult positive in the emergency department. Denies previous hx of this, denies being on blood thinner. He takes Aleve occasionally, he is taking ASA. Denies ever having EGD/colonoscopy before. Denies hematochezia. Ct done with No acute intra-abdominal process. hgb dropped from 9.4 ---> 6.9, he is receiving blood transfusion. PPI started - Anemia- secondary to acute GI bleed - coronary artery disease and hypertension per attending Plan: - NPO - EGD today - Monitor hh - transfuse as needed - Cont. PPI - Supportive care - Further recommendation to follow - Pt seen and examined by Dr. Anne and myself and this note is written on his behalf <Bridget Rain - Last Filed: 12/24/17 10:43> - Attending Attestation Seen and examined, plan as above. Will obtain consent for today. Further recommendations to follow. Thank you for the consult. <Jude Anne - Last Filed: 12/24/17 11:51>
[2017-12-24 12:30] LABS: Hematocrit 23.8 % (39.0-51.0); Hemoglobin 7.6 gm/dL (13.0-17.0)
--- NOTE | 2017-12-24 12:38 | P.PN ---
Subjective Interval history: Follow-up for GI bleed: Complains of dizziness when out of bed, no chest pain, shortness of breath. Minimal abdominal tenderness, indicates he has an umbilical hernia that occasionally causes pain. No hematemesis, no dark tarry stools since yesterday. Receive blood transfusion. Currently n.p.o. Wants to eat. Physical Exam Vital signs: Vital Signs 12/23/17 18:03 12/23/17 19:22 12/23/17 23:07 Temperature 97.9 F 98.6 F Pulse Rate 65 65 75 Respiratory Rate 17 17 19 Blood Pressure 176/96 H 158/84 H 139/82 Pulse Oximetry 100 100 100 12/24/17 04:56 12/24/17 05:14 12/24/17 05:16 Temperature 98.1 F 98.2 F 98.2 F Pulse Rate 59 L 59 L 59 L Respiratory Rate 16 16 16 Blood Pressure 144/83 H 138/81 138/81 Pulse Oximetry 100 99 99 12/24/17 07:28 Temperature 98.1 F Pulse Rate 60 Respiratory Rate 14 Blood Pressure 142/84 H Pulse Oximetry 100 Intake & Output 12/23/17 12/24/17 12/24/17 18:59 06:59 18:59 Intake Total 35 / 35 1000 / 1000 700 / 700 Balance 35 / 35 1000 / 1000 700 / 700 Weight 78.925 kg 79.379 kg Intake: IV 35 / 35 1000 / 1000 700 / 700 NS Inj 1,000 ML @ 100 mls/hr IV 700 / 700 .CONT .Q10H [facility] Rx#:[id number] Protonix Inj 80 MG In NS Inj 35 35 / 35 ML @ 420 mls/hr IV.SIG BOLUS ONE Rx#:[id number] NS Inj 1,000 ML @ Wide Open IV. 1000 / 1000 SIG BOLUS ONE Rx#:[id number] Intake (Blood Product) Amt 0 / 0 Rbc As-3 Leukoreduced Unit 0 / 0 [id number] Other: Date of Last Bowel Movement 12/23/17 Weight On Admission 78.925 kg Narrative: GENERAL: Well-nourished, well-developed patient in no apparent distress. SKIN: Warm and dry. HEAD: Atraumatic. Normocephalic. EYES: Pupils equal and round. No scleral icterus. No injection or drainage. ENT: No nasal bleeding or discharge. Mucous membranes pink and moist. NECK: Trachea midline. No JVD. CARDIOVASCULAR: Regular rate and rhythm. RESPIRATORY: No accessory muscle use. Clear to auscultation. Breath sounds equal bilaterally. GASTROINTESTINAL: Abdomen soft, mildly tender above the umbilicus, small hernia noted with racing of head. Abdomen nondistended. Hepatic and splenic margins not palpable. MUSCULOSKELETAL: Extremities without clubbing, cyanosis, or edema. No obvious deformities. NEUROLOGICAL: Awake and alert. No obvious cranial nerve deficits. Motor grossly within normal limits. Five out of 5 muscle strength in the arms and legs. Normal speech. PSYCHIATRIC: Appropriate mood and affect; insight and judgment normal. Results - Labs CBC & Chem 7: 12/24/17 11:55 12/24/17 03:20 Laboratory Results - last 24 hr 12/23/17 12/23/17 12/23/17 17:57 17:57 17:57 WBC 6.3 RBC 3.80 L Hgb 9.4 L Hct 30.0 L MCV 78.9 L MCH 24.8 L MCHC 31.4 L RDW 15.3 Plt Count 176 MPV 9.4 Prelim Diff (Auto) Neut % (Auto) 81.5 H Lymph % (Auto) 14.7 [place] % (Auto) 3.3 Eos % (Auto) 0.1 Baso % (Auto) 0.4 Neut # (Auto) 5.2 Lymph # (Auto) 0.9 L [place] # (Auto) 0.2 Eos # (Auto) 0.0 Baso # (Auto) 0.0 WBC Differential . Differential Comment Auto diff final PT INR APTT Sodium 140 Potassium 4.4 Chloride 110 H Carbon Dioxide 22.1 Anion Gap 8 BUN 56 H Creatinine 1.22 Estimated GFR 76 L Random Glucose 86 Calcium 8.5 Total Bilirubin 0.2 AST 23 ALT 15 Alkaline Phosphatase 42 L Total Protein 6.9 Albumin 3.3 L Lipase 120 Urine Color Urine Clarity Urine pH Ur Specific [place] Urine Protein Urine Glucose (UA) Urine Ketones Urine Occult Blood Urine Nitrate Urine Bilirubin Urine Urobilinogen Ur Leukocyte Esterase Urine WBC Ur Squamous Epith Cells Urine Mucus Micro UA Comment Ur Microscopic Review Urine Culture Comments Blood Type O Positive Blood Type Recheck Required Antibody Screen Negative MTS Gel Crossmatch 12/23/17 12/23/17 12/23/17 18:20 19:20 23:57 WBC RBC Hgb 7.1 L D Hct 22.2 L MCV MCH MCHC RDW Plt Count MPV Prelim Diff (Auto) Neut % (Auto) Lymph % (Auto) [place] % (Auto) Eos % (Auto) Baso % (Auto) Neut # (Auto) Lymph # (Auto) [place] # (Auto) Eos # (Auto) Baso # (Auto) WBC Differential Differential Comment PT 10.7 INR 1.1 APTT 18.4 L Sodium Potassium Chloride Carbon Dioxide Anion Gap BUN Creatinine Estimated GFR Random Glucose Calcium Total Bilirubin AST ALT Alkaline Phosphatase Total Protein Albumin Lipase Urine Color Straw Urine Clarity Clear Urine pH 5.0 Ur Specific [place] 1.018 Urine Protein Negative Urine Glucose (UA) Negative Urine Ketones Negative Urine Occult Blood Negative Urine Nitrate Negative Urine Bilirubin Negative Urine Urobilinogen Less than 2 Ur Leukocyte Esterase Negative Urine WBC Less than 1 Ur Squamous Epith Cells <1 Urine Mucus Few H Micro UA Comment Culture not ind Ur Microscopic Review Not Reportable Urine Culture Comments Culture not ind Blood Type Blood Type Recheck Antibody Screen MTS Gel Crossmatch 12/24/17 12/24/17 12/24/17 03:20 03:20 04:00 WBC 4.6 RBC 2.84 L Hgb 6.9 L* Hct 22.0 L MCV 77.5 L MCH 24.3 L MCHC 31.4 L RDW 15.1 Plt Count 165 MPV 9.0 Prelim Diff (Auto) Inventory Control Manager Neut % (Auto) 53.1 Lymph % (Auto) 37.7 [place] % (Auto) 7.9 Eos % (Auto) 0.9 Baso % (Auto) 0.4 Neut # (Auto) 2.4 Lymph # (Auto) 1.7 [place] # (Auto) 0.4 Eos # (Auto) 0.0 Baso # (Auto) 0.0 WBC Differential . Differential Comment Auto diff final PT INR APTT Sodium 145 Potassium 3.8 Chloride 112 H Carbon Dioxide 22.9 Anion Gap 10 BUN 38 H Creatinine 1.29 Estimated GFR 71 L Random Glucose 78 Calcium 8.0 L Total Bilirubin 0.2 AST 13 L ALT 11 L Alkaline Phosphatase 34 L Total Protein 5.6 L D Albumin 2.7 L D Lipase Urine Color Urine Clarity Urine pH Ur Specific [place] Urine Protein Urine Glucose (UA) Urine Ketones Urine Occult Blood Urine Nitrate Urine Bilirubin Urine Urobilinogen Ur Leukocyte Esterase Urine WBC Ur Squamous Epith Cells Urine Mucus Micro UA Comment Ur Microscopic Review Urine Culture Comments Blood Type Blood Type Recheck Antibody Screen MTS Gel Crossmatch See Detail 12/24/17 11:55 WBC RBC Hgb 7.6 L Hct 23.8 L MCV MCH MCHC RDW Plt Count MPV Prelim Diff (Auto) Neut % (Auto) Lymph % (Auto) [place] % (Auto) Eos % (Auto) Baso % (Auto) Neut # (Auto) Lymph # (Auto) [place] # (Auto) Eos # (Auto) Baso # (Auto) WBC Differential Differential Comment PT INR APTT Sodium Potassium Chloride Carbon Dioxide Anion Gap BUN Creatinine Estimated GFR Random Glucose Calcium Total Bilirubin AST ALT Alkaline Phosphatase Total Protein Albumin Lipase Urine Color Urine Clarity Urine pH Ur Specific [place] Urine Protein Urine Glucose (UA) Urine Ketones Urine Occult Blood Urine Nitrate Urine Bilirubin Urine Urobilinogen Ur Leukocyte Esterase Urine WBC Ur Squamous Epith Cells Urine Mucus Micro UA Comment Ur Microscopic Review Urine Culture Comments Blood Type Blood Type Recheck Antibody Screen MTS Gel Crossmatch - Imaging Impressions Abdomen/Pelvis CT 12/23/17 17:39 CONCLUSION: 1. No acute intra-abdominal process. 2. Degenerative changes involving the lower lumbar spine. Assessment and Plan - Assessment (1) Acute upper GI bleed Code(s): K92.2 - Gastrointestinal hemorrhage, unspecified Status: Acute (2) Anemia Code(s): D64.9 - Anemia, unspecified Status: Acute (3) CAD (coronary artery disease) Code(s): I25.10 - Atherosclerotic heart disease of [place] coronary artery without angina pectoris Status: Chronic - Plan Assessment/plan: 52-year-old male with past medical history significant for coronary artery disease and hypertension presents to the emergency department for the evaluation of upper GI bleed. The patient reports that for approximately the past week he has been having intermittent, crampy abdominal pain. He reports associated anorexia. He had an incident of coffee-ground emesis early this morning and black, tarry stools that also began today. He reported he was in the shower when he became dizzy and lightheaded. He went to lay down and then went to work where his symptoms persisted. He was Hemoccult positive in the emergency department. Upper GI bleed -Continue with serial H&H Status post blood transfusion Continue with IV Protonix N.p.o. status Continue with IV fluids Gastroenterology input appreciated, going for upper endoscopy today Hypertension -Vasotec as needed -We will resume home blood pressure medications when he is able to take p.o. Coronary artery disease -Holding home aspirin given GI bleed Umbilical hernia, occasional abdominal pain Patient is to follow-up as outpatient with general surgery. We will follow-up on EGD results Repeat labs in the morning Discharge planning in progress (2) Anemia Qualifiers: Anemia type: other cause Other causes of anemia: acute posthemorrhagic Qualified Code(s): D62 - Acute posthemorrhagic anemia (3) CAD (coronary artery disease) Qualifiers: Coronary Disease-Associated Artery/Lesion type: [place] artery [place] vs. transplanted heart: [place] heart Associated angina: without angina Qualified Code(s): I25.10 - Atherosclerotic heart disease of [place] coronary artery without angina pectoris
[2017-12-24] MEDS ORDERED: Lidocaine PF 1% Inj 5 ML Syringe INFILTRATN ONE (13:45)
--- NOTE | 2017-12-24 14:17 | GIPROC ---
[facility] [address] [facility]. [facility] [place], [address] EGD PROCEDURE REPORT EXAM DATE: 12/24/2017 PATIENT NAME: Dorian Mayfield MR #: [id number] BIRTHDATE: 1965 ATTENDING: Jude Anne MD ORDER #: [id number] OTOLARYNGOLOGY REP: Nnacy Beltrán and Karis Acevedo STATUS: inpatient INDICATIONS: The patient is a 52 yr old male here for an EGD due to hematemesis PROCEDURE PERFORMED: EGD w/ control of bleeding MEDICATIONS: None and Per Anesthesia. TOPICAL ANESTHETIC: none CONSENT: The patient understands the risks and benefits of the procedure and understands that these risks include, but are not limited to: sedation, allergic reaction, infection, perforation and/or bleeding. Alternative means of evaluation and treatment include, among others: physical exam, x-rays, and/or surgical intervention. The patient elects to proceed with this endoscopic procedure. medical equipment was checked for proper function. Hand hygiene and appropriate measures for infection prevention was taken. After the risks, benefits and alternatives of the procedure were thoroughly explained, Informed consent was verified, confirmed and timeout was successfully executed by the treatment team. The patient was anesthetized with topical anesthesia and the Pentax EG-[id number] endoscope was introduced through the mouth and advanced to the second portion of the duodenum. Retroflexion was performed and was normal The gastroscope was then slowly withdrawn and removed. ESOPHAGUS: The mucosa of the esophagus appeared normal. STOMACH: The mucosa of the stomach appeared normal. DUODENUM: A large non-bleeding and round ulcer with a pigmented spot was found in the duodenal bulb. Complete hemostasis was achieved by placing a single Cook instinct hemoclip on the bleeding site(s). ADVERSE EVENTS: There were no complications. IMPRESSIONS: 1. The esophagus appeared normal 2. The mucosa of the stomach appeared normal 3. Large ulcer was found in the duodenal bulb; Complete hemostasis was achieved by placing a single hemoclip on the bleeding site(s) 4. Retroflexion was performed and was normal RECOMMENDATIONS: 1. Continue PPI 2. Check stool for H. Pylori antigen PATIENT CONDITION: stable DISPOSITION: Observation REPEAT EXAM: NONE Jude Anne MD eSigned: Jude Anne MD 12/24/2017 2:17 PM cc: PATIENT NAME: Dorian Mayfield MR#: [id number]
[2017-12-24 18:41] LABS: Hematocrit 22.6 % (39.0-51.0); Hemoglobin 7.3 gm/dL (13.0-17.0)
--- NOTE | 2017-12-25 00:35 | ECG ---
Date Performed: 12/23/2017 Time Performed: 19:55:55 PTAGE: 52 years EKG: Sinus rhythm MARKED LEFT AXIS DEVIATION LEFT VENTRICULAR HYPERTROPHY AND ST-T CHANGE ABNORMAL ECG PREVIOUS TRACING : 06/02/2017 01.05 Compared to previous tracing, T wave changes are less prom inent DOCTOR: Luis Steen Interpretating Date/Time 12/25/2017 00:34:04
[2017-12-25] MEDS: Sod Chloride 0.9% Inj 1,000 ML IV.CONT SCH ×2 (06:00→17:54)
[2017-12-25 06:53] LABS: Hemoglobin 7.1 gm/dL (13.0-17.0); Mean Corpuscular HGB Conc 32.3 % (32.0-36.0); Mean Corpuscular Hemoglobin 25.8 pg (27.0-34.0); Mean Corpuscular Volume 79.7 fL (80.0-100.0); Platelet Count 146 th/mm3 (150-450); Red Blood Count 2.76 mil/mm3 (4.50-5.90); Red Cell Distribution Width 15.9 % (11.6-17.2); White Blood Count 5.2 th/mm3 (4.0-11.0)
[2017-12-25 07:18] LABS: Calcium 7.7 mg/dL (8.5-10.1); Carbon Dioxide 25.4 meq/L (21.0-32.0); Potassium 3.7 meq/L (3.5-5.1)
[2017-12-25] MEDS ORDERED: Sodium Chlor 0.9% Inj 250 ML IV.SIG SCH (09:00)
[2017-12-25] MEDS ORDERED: cloNIDine Susp (NICU) 20 MCG/ML 30 ML Bottle PO SCH (09:00)
--- NOTE | 2017-12-25 09:02 | P.PN ---
Subjective Interval history: Follow-up for GI bleed: Had EGD, found with a duodenal ulcer status post clipping. No hematemesis, no nausea, no vomiting, no abdominal pain. Wants something to eat. No tarry stools. Blood pressure elevated overnight. Has not been out of bed, no dizziness while laying down. Physical Exam Vital signs: Vital Signs 12/24/17 11:02 12/24/17 14:16 12/24/17 14:31 Temperature 97.6 F 98.2 F Pulse Rate 61 73 63 Respiratory Rate 16 16 Blood Pressure 121/68 124/72 Pulse Oximetry 100 100 12/24/17 15:59 12/24/17 20:00 12/24/17 23:33 Temperature 97.8 F 98.7 F 98.2 F Pulse Rate 65 62 56 L Respiratory Rate 18 16 16 Blood Pressure 147/80 H 157/89 H 130/76 Pulse Oximetry 100 100 100 12/25/17 04:00 12/25/17 07:17 Temperature 98.1 F 98.1 F Pulse Rate 57 L 80 Respiratory Rate 16 19 Blood Pressure 158/94 H 179/100 H Pulse Oximetry 100 100 Intake & Output 12/24/17 12/25/17 12/25/17 18:59 06:59 18:59 Intake Total 950 / 950 2450 / 2450 Output Total 350 / 350 650 / 650 Balance 600 / 600 1800 / 1800 Intake: IV 700 / 700 1250 / 1250 NS Inj 1,000 ML @ 100 mls/hr IV 700 / 700 1000 / 1000 .CONT .Q10H [facility] Rx#:[id number] NS Inj 250 ML @ 15 mls/hr IV. 250 / 250 SIG ONCE [facility] Rx#:[id number] Oral 1200 / 1200 Anesthesia Amount 250 / 250 Intake (Blood Product) Amt 0 / 0 Rbc As-3 Leukoreduced Unit 0 / 0 [id number] Output: Urine 350 / 350 650 / 650 Other: Date of Last Bowel Movement 12/23/17 Narrative: GENERAL: Well-nourished, well-developed patient in no apparent distress. SKIN: Warm and dry. HEAD: Atraumatic. Normocephalic. EYES: Pupils equal and round. No scleral icterus. No injection or drainage. ENT: No nasal bleeding or discharge. Mucous membranes pink and moist. NECK: Trachea midline. No JVD. CARDIOVASCULAR: Regular rate and rhythm. RESPIRATORY: No accessory muscle use. Clear to auscultation. Breath sounds equal bilaterally. GASTROINTESTINAL: Abdomen soft, mildly tender above the umbilicus, small hernia noted with racing of head. Abdomen nondistended. Hepatic and splenic margins not palpable. MUSCULOSKELETAL: Extremities without clubbing, cyanosis, or edema. No obvious deformities. NEUROLOGICAL: Awake and alert. No obvious cranial nerve deficits. Motor grossly within normal limits. Five out of 5 muscle strength in the arms and legs. Normal speech. PSYCHIATRIC: Appropriate mood and affect; insight and judgment normal. Results - Labs CBC & Chem 7: 12/25/17 05:48 12/25/17 05:48 Laboratory Results - last 24 hr 12/24/17 12/24/17 12/24/17 04:00 11:55 18:20 WBC RBC Hgb 7.6 L 7.3 L Hct 23.8 L 22.6 L MCV MCH MCHC RDW Plt Count MPV Sodium Potassium Chloride Carbon Dioxide Anion Gap BUN Creatinine Estimated GFR Random Glucose Calcium MTS Gel Crossmatch See Detail 12/25/17 12/25/17 12/25/17 05:48 05:48 08:19 WBC 5.2 RBC 2.76 L Hgb 7.1 L Hct 22.0 L MCV 79.7 L MCH 25.8 L MCHC 32.3 RDW 15.9 Plt Count 146 L MPV 9.0 Sodium 144 Potassium 3.7 Chloride 111 H Carbon Dioxide 25.4 Anion Gap 8 BUN 20 H Creatinine 1.28 Estimated GFR 72 L Random Glucose 106 Calcium 7.7 L MTS Gel Crossmatch See Detail Assessment and Plan - Assessment (1) Acute upper GI bleed Code(s): K92.2 - Gastrointestinal hemorrhage, unspecified Status: Acute (2) Anemia Code(s): D64.9 - Anemia, unspecified Status: Acute (3) CAD (coronary artery disease) Code(s): I25.10 - Atherosclerotic heart disease of [place] coronary artery without angina pectoris Status: Chronic - Plan Assessment/plan: 52-year-old male with past medical history significant for coronary artery disease and hypertension presents to the emergency department for the evaluation of upper GI bleed. The patient reports that for approximately the past week he has been having intermittent, crampy abdominal pain. He reports associated anorexia. He had an incident of coffee-ground emesis early this morning and black, tarry stools that also began today. He reported he was in the shower when he became dizzy and lightheaded. He went to lay down and then went to work where his symptoms persisted. He was Hemoccult positive in the emergency department. Upper GI bleed -s/p EGD 12/24-- Large ulcer was found in the duodenal bulb; s/p hemoclip. -Continue with serial H&H, 7.05/11 today after 1 units PRBC yesterday. -will give one more unit today with Lasix 20 mg IV to prevent fluid overload. -cont. PPI PO -follow bx -adv to soft diet -GI input appreciated Hypertension elevated at times. -Vasotec as needed -Resume lisinopril Coronary artery disease -Holding home aspirin given GI bleed Umbilical hernia, occasional abdominal pain Patient is to follow-up as outpatient with general surgery. Will have RN get him up to ambulate with assistance after blood transfusion. We will reevaluate in the afternoon after blood transfusion. Possible discharge later today after GI clears (2) Anemia Qualifiers: Anemia type: other cause Other causes of anemia: acute posthemorrhagic Qualified Code(s): D62 - Acute posthemorrhagic anemia (3) CAD (coronary artery disease) Qualifiers: Coronary Disease-Associated Artery/Lesion type: [place] artery [place] vs. transplanted heart: [place] heart Associated angina: without angina Qualified Code(s): I25.10 - Atherosclerotic heart disease of [place] coronary artery without angina pectoris
[2017-12-25] MEDS: Lisinopril 20 MG Tablet PO SCH (10:03)
[2017-12-25] MEDS: amLODIPine 10 MG Tablet PO SCH (10:03)
[2017-12-25 14:23] LABS: Hematocrit 29.5 % (39.0-51.0); Hemoglobin 9.6 gm/dL (13.0-17.0)
[2017-12-25] MEDS ORDERED: Simethicone 80 MG Chew Tablet PO ONE (17:45)
[2017-12-25] MEDS ORDERED: hydrALAZINE HCl Inj 20 MG/ML Vial IV.PUSH PRN (18:42)
[2017-12-26] MEDS ORDERED: Morphine Sulfate Inj 2 MG/ML Vial IV.PUSH ONE (00:22)
[2017-12-26] MEDS: Sod Chloride 0.9% Inj 1,000 ML IV.CONT SCH ×2 (00:46→09:51)
[2017-12-26 08:50] VITALS: RESP 16
--- NOTE | 2017-12-26 09:25 | P.PN ---
Subjective Interval history: Follow-up for GI bleed: Discharge held yesterday as patient had hypertensive crisis. Blood pressure markedly improved overnight, 133/85. Had moderate epigastric discomfort yesterday, received simethicone. Indicates the pain is gone today. Wants something to eat. No nausea, no vomiting. No chest pain, no shortness of breath. Physical Exam Vital signs: Vital Signs 12/25/17 10:23 12/25/17 10:45 12/25/17 11:49 Temperature 98.0 F 98.1 F 97.7 F Pulse Rate 61 64 71 Respiratory Rate 16 16 19 Blood Pressure 161/81 H 183/82 H 196/114 H Pulse Oximetry 100 12/25/17 11:54 12/25/17 15:25 12/25/17 15:33 Temperature 98.3 F Pulse Rate 67 Respiratory Rate 15 Blood Pressure 180/89 H 194/102 H 189/99 H Pulse Oximetry 100 12/25/17 17:03 12/25/17 19:18 12/25/17 23:15 Temperature 98.7 F 98.9 F Pulse Rate 64 58 L Respiratory Rate 20 20 Blood Pressure 219/113 H 156/94 H 180/109 H Pulse Oximetry 100 100 12/26/17 00:45 12/26/17 03:53 12/26/17 04:40 Temperature 98.0 F Pulse Rate 67 54 L 52 L Respiratory Rate 20 Blood Pressure 146/97 H 133/85 Pulse Oximetry 100 12/26/17 08:48 Temperature 98.1 F Pulse Rate 57 L Respiratory Rate 16 Blood Pressure 122/75 Pulse Oximetry 100 Intake & Output 12/25/17 12/26/17 12/26/17 18:59 06:59 18:59 Intake Total 1120 / 1120 830 / 830 Output Total 400 / 400 Balance 1120 / 1120 830 / 830 -400 / -400 Intake: IV 250 / 250 NS Inj 250 ML @ 15 mls/hr IV. 250 / 250 SIG ONCE [facility] Rx#:[id number] Oral 720 / 720 580 / 580 Intake (Blood Product) Amt 400 / 400 Rbc As-3 Leukoreduced Unit 400 / 400 [id number] Output: Urine 400 / 400 Other: # Voids 3 3 Date of Last Bowel Movement 12/23/17 Narrative: GENERAL: Well-nourished, well-developed patient in no apparent distress. SKIN: Warm and dry. HEAD: Atraumatic. Normocephalic. EYES: Pupils equal and round. No scleral icterus. No injection or drainage. ENT: No nasal bleeding or discharge. Mucous membranes pink and moist. NECK: Trachea midline. No JVD. CARDIOVASCULAR: Regular rate and rhythm. RESPIRATORY: No accessory muscle use. Clear to auscultation. Breath sounds equal bilaterally. GASTROINTESTINAL: Abdomen soft, Mild epigastric tenderness. Abdomen nondistended. Hepatic and splenic margins not palpable. BS normoactive x 4 MUSCULOSKELETAL: Extremities without clubbing, cyanosis, or edema. No obvious deformities. NEUROLOGICAL: Awake and alert. No obvious cranial nerve deficits. Motor grossly within normal limits. Five out of 5 muscle strength in the arms and legs. Normal speech. PSYCHIATRIC: Appropriate mood and affect; insight and judgment normal. Results - Labs CBC & Chem 7: 12/25/17 14:15 12/25/17 05:48 Laboratory Results - last 24 hr 12/24/17 12/25/17 12/25/17 04:00 08:19 14:15 Hgb 9.6 L D Hct 29.5 L MTS Gel Crossmatch See Detail See Detail Assessment and Plan - Assessment (1) Acute upper GI bleed Code(s): K92.2 - Gastrointestinal hemorrhage, unspecified Status: Acute (2) Anemia Code(s): D64.9 - Anemia, unspecified Status: Acute (3) CAD (coronary artery disease) Code(s): I25.10 - Atherosclerotic heart disease of [place] coronary artery without angina pectoris Status: Chronic (4) Hypertensive crisis Code(s): I16.9 - Hypertensive crisis, unspecified Status: Acute - Plan Assessment/plan: 52-year-old male with past medical history significant for coronary artery disease and hypertension presents to the emergency department for the evaluation of upper GI bleed. The patient reports that for approximately the past week he has been having intermittent, crampy abdominal pain. He reports associated anorexia. He had an incident of coffee-ground emesis early this morning and black, tarry stools that also began today. He reported he was in the shower when he became dizzy and lightheaded. He went to lay down and then went to work where his symptoms persisted. He was Hemoccult positive in the emergency department. Upper GI bleed -s/p EGD 12/24-- Large ulcer was found in the duodenal bulb; s/p hemoclip. -Hemoglobin 9.6, hematocrit 29.5. Is status post 2 units of packed cell. -cont. PPI PO -follow bx -adv to soft diet-tolerating fairly well. Instructed to avoid spicy foods and to remain sitting up after eating. -GI input appreciated -Epigastric discomfort yesterday, given simethicone. Pain relieved Hypertension elevated at times. Hypertensive crisis yesterday, discharge he will -Vasotec as needed -Continue lisinopril, Norvasc. Coronary artery disease -Holding home aspirin given GI bleed -Patient can resume in a week. Umbilical hernia, occasional abdominal pain Patient is to follow-up as outpatient with general surgery. Discharge held yesterday due to hypertensive crisis, patient received as needed Vasotec as well as clonidine. Was going to be transferred to CV PCU however blood pressure stabilized. Blood pressure is well controlled today, patient has no complaints. Stable for discharge Discharge home today f/u heart healthy activity as tolerated f/u GI in 2 weeks can return to work Thursday (2) Anemia Qualifiers: Anemia type: other cause Other causes of anemia: acute posthemorrhagic Qualified Code(s): D62 - Acute posthemorrhagic anemia (3) CAD (coronary artery disease) Qualifiers: Coronary Disease-Associated Artery/Lesion type: [place] artery [place] vs. transplanted heart: [place] heart Associated angina: without angina Qualified Code(s): I25.10 - Atherosclerotic heart disease of [place] coronary artery without angina pectoris
--- NOTE | 2017-12-26 09:33 | P.DS ---
Date of admission: 12/24/17 12:37 Primary care physician: No Primary Care Physician Attending physician on discharge: Cheikh Santiago Anticipated date of discharge: 12/26/17 Brief History from admission: 52-year-old male with past medical history significant for coronary artery disease and hypertension presents to the emergency department for the evaluation of upper GI bleed. The patient reports that for approximately the past week he has been having intermittent, crampy abdominal pain. He reports associated anorexia. He had an incident of coffee-ground emesis early this morning and black, tarry stools that also began today. He reports he was in the shower when he became dizzy and lightheaded. He went to lay down and then went to work where his symptoms persisted. He was Hemoccult positive in the emergency department. He denies any chest pain or shortness of breath. No fever/chills. No lateralizing signs/symptoms. DS: Diagnosis - Discharge Diagnosis (1) Acute upper GI bleed Status: Acute (2) Anemia Status: Acute (3) CAD (coronary artery disease) Status: Chronic (4) Hypertensive crisis Status: Acute DS: Medications - Discharge Medications Prescriptions: pantoprazole 40 mg PO DAILY 30 Days #30 tab DS: Summary Hospital Course: Assessment/plan: 52-year-old male with past medical history significant for coronary artery disease and hypertension presents to the emergency department for the evaluation of upper GI bleed. The patient reports that for approximately the past week he has been having intermittent, crampy abdominal pain. He reports associated anorexia. He had an incident of coffee-ground emesis early this morning and black, tarry stools that also began today. He reported he was in the shower when he became dizzy and lightheaded. He went to lay down and then went to work where his symptoms persisted. He was Hemoccult positive in the emergency department. Pt. admitted with; Upper GI bleed -Start on IV fluids and IV Protonix. Consulted GI. Hemoglobin went down to 6.8. Patient did require a total of 2 units of packed cells. Hemoglobin improved to 9.6. Underwent EGD,Large ulcer was found in the duodenal bulb; s/p hemoclip. -adv to soft diet-tolerating fairly well. Instructed to avoid spicy foods and to remain sitting up after eating. -had Epigastric discomfort given simethicone. Pain relieved Hypertension pt developed Hypertensive crisis on day of dc, discharge held. Was going to be transferred to [facility] however blood pressure stabilized. He had epigastric discomfort, an EKG was done. No evidence of ACS. -Vasotec as needed ordered. -Continued lisinopril, Norvasc. -pt's BP improved, went down to 130s. Coronary artery disease -Held home aspirin given GI bleed -Patient can resume in a week. Umbilical hernia, occasional abdominal pain Patient is to follow-up as outpatient with general surgery. Pt. stabilized, cleared by GI. Discharged home f/u heart healthy activity as tolerated f/u GI in 2 weeks can return to work Thursday - Time Spent with Patient Total time spent providing and/or coordinating discharge services:35 Greater than 30 minutes - Quality: VTE Deep Vein Thrombosis/Pulmonary Embolism Present on Admission: No Exam Vital signs: Vital Signs 12/25/17 10:23 12/25/17 10:45 12/25/17 11:49 Temperature 98.0 F 98.1 F 97.7 F Pulse Rate 61 64 71 Respiratory Rate 16 16 19 Blood Pressure 161/81 H 183/82 H 196/114 H Pulse Oximetry 100 12/25/17 11:54 12/25/17 15:25 12/25/17 15:33 Temperature 98.3 F Pulse Rate 67 Respiratory Rate 15 Blood Pressure 180/89 H 194/102 H 189/99 H Pulse Oximetry 100 12/25/17 17:03 12/25/17 19:18 12/25/17 23:15 Temperature 98.7 F 98.9 F Pulse Rate 64 58 L Respiratory Rate 20 20 Blood Pressure 219/113 H 156/94 H 180/109 H Pulse Oximetry 100 100 12/26/17 00:45 12/26/17 03:53 12/26/17 04:40 Temperature 98.0 F Pulse Rate 67 54 L 52 L Respiratory Rate 20 Blood Pressure 146/97 H 133/85 Pulse Oximetry 100 12/26/17 08:48 Temperature 98.1 F Pulse Rate 57 L Respiratory Rate 16 Blood Pressure 122/75 Pulse Oximetry 100 Intake & Output 12/25/17 12/26/17 12/26/17 18:59 06:59 18:59 Intake Total 1120 / 1120 830 / 830 Output Total 400 / 400 Balance 1120 / 1120 830 / 830 -400 / -400 Intake: IV 250 / 250 NS Inj 250 ML @ 15 mls/hr IV. 250 / 250 SIG ONCE [facility] Rx#:[id number] Oral 720 / 720 580 / 580 Intake (Blood Product) Amt 400 / 400 Rbc As-3 Leukoreduced Unit 400 / 400 [id number] Output: Urine 400 / 400 Other: # Voids 3 3 Date of Last Bowel Movement 12/23/17 Results Procedures completed during hospitalization: s/p EGD 12/24-- Large ulcer was found in the duodenal bulb; s/p hemoclip. Labs on day of discharge: Labs from last 24 hours 12/25/17 12/25/17 12/24/17 14:15 08:19 04:00 Hgb 9.6 L D Hct 29.5 L MTS Gel Crossmatch See Detail See Detail - Impressions ITS Impressions Abdomen/Pelvis CT 12/23/17 17:39 CONCLUSION: 1. No acute intra-abdominal process. 2. Degenerative changes involving the lower lumbar spine. Discharge Plan - Discharge Disposition Patient Disposition: 01 Discharge Home - Discharge Condition Condition: Stable - Discharge Order Discharge Orders: Discharge Order (Routine); Ordered 12/26/17 Ordered By: Malathi Gomez - Discharge Details Anticipated Discharge Date: 12/26/17 - Physicians Team Primary Care Provider: Primary Care Ines Izquierdo Attending Provider: Cheikh Santiago Other Providers: Jude Anne MD
[2017-12-26] MEDS: amLODIPine 10 MG Tablet PO SCH (09:48)
[2017-12-26] MEDS: Lisinopril 20 MG Tablet PO SCH (09:49)
[2017-12-26 10:11] LABS: Hematocrit 26.3 % (39.0-51.0); Hemoglobin 8.6 gm/dL (13.0-17.0); Mean Corpuscular HGB Conc 32.8 % (32.0-36.0); Mean Corpuscular Hemoglobin 26.4 pg (27.0-34.0); Mean Corpuscular Volume 80.3 fL (80.0-100.0); Mean Platelet Volume 8.7 fL (7.0-11.0); Platelet Count 177 th/mm3 (150-450); Red Blood Count 3.27 mil/mm3 (4.50-5.90); Red Cell Distribution Width 16.3 % (11.6-17.2); White Blood Count 5.6 th/mm3 (4.0-11.0)
[2017-12-26 11:45] VITALS: BP 119/61; PULSE 51; TEMP 98.4
--- NOTE | 2017-12-27 12:50 | ECG ---
Date Performed: 12/25/2017 Time Performed: 17:39:36 PTAGE: 52 years EKG: Sinus rhythm POSSIBLE RIGHT VENTRICULAR CONDUCTION DELAY LEFT ANTERIOR FASCICULAR BLOCK LEFT VENTRICULAR HYPERTRO PHY AND ST-T CHANGE POSSIBLE SEPTAL MYOCARDIAL INFARCTION ABNORMAL ECG PREVIOUS TRACING 12/23/20175 Since the previous tracing, no significant change noted DOCTOR: Aram Henao Interpretating Date/Time 12/27/2017 12:50:35
== END 2017-12-26 14:26 | disposition home or self-care (01) ==
LOC: NEPD 15:47 → NEPFCDU 19:30 → INTOOBSV 20:14 → NEDA 20:14 → NEPFCDU 21:28
PROVIDERS: ADMIT Hospitalist; ATTEND Hospitalist
PROC: PANENDO (2017-12-24 13:45)